=== PATIENT | female | born 1940 | race Caucasian/White ===

== ENCOUNTER 2019-12-30 08:42 | Outpatient (CLI) | payer MEDICARE, SELFPAY ==
[2019-12-30 08:55] LABS: Hematocrit 40.1 % (35.0-42.0); Hemoglobin 12.9 g/dL (11.7-13.8); Mean Corpuscular HGB Conc 32.2 g/dL (32.0-36.0); Mean Corpuscular Hemoglobin 28.7 pg (27.0-31.0); Mean Corpuscular Volume 89.1 fL (78.0-102.0); Mean Platelet Volume 9.6 fl (9.2-11.8); Platelet Count Result 207 K/mm3 (150-420); Red Cell Distribution Width 13.2 % (11.6-14.4)
[2019-12-30 09:36] LABS: Creatinine Urine 177.18 mg/dL (40-278)
[2019-12-30 09:37] LABS: MALB Creatinine Ratio 17.1 mg/g (0-30); Microalbumin Urine Random 30.4 mg/L
[2019-12-30 09:42] LABS: Hemoglobin A1C 6.6 % (<5.7)
[2019-12-30 09:49] LABS: Band Neutrophils Percent 1 % (0-6); Lymphocytes Absolute Manual 1.26 K/mm3 (1.1-4.5); Lymphocytes Percent Manual 14 % (18-44); Monocytes Absolute Manual 0.54 K/mm3 (0.1-0.90); Monocytes Percent Manual 6 % (3-9); Neutrophils Absolute Manual 6.66 K/mm3 (1.7-7.2); Neutrophils Percent Manual 73 % (46-73); Total Cells Counted 100
[2019-12-30 09:50] LABS: Basophils Percent Manual 0 % (0-1); Eosinophils Absolute Manual 0.54 K/mm3 (0.02-0.5); Eosinophils Percent Manual 6 % (1-6); Platelet Estimate Adequate (Adequate)
[2019-12-30 11:33] LABS: Alanine Aminotransferase 42 U/L (14-59); Albumin Level 3.7 g/dL (3.4-5.0); Alkaline Phosphatase 60 U/L (46-116); Anion Gap 15.3 mmol/L (7-16); Aspartate Amino Transferase 37 U/L (15-37); Bilirubin,Total 0.4 mg/dL (0.00-1.00); Blood Urea Nitrogen 16 mg/dL (7-18); Calcium 10.1 mg/dL (8.5-10.1); Carbon Dioxide 29 mmol/L (21-32); Chloride 105 mmol/L (98-108); Estimated Glomerular Filt Rate 49; Glucose 116 mg/dL (70-99); Osmolality Calculated 302 mOsm/kg (285-295); Potassium 4.3 mmol/L (3.5-5.1); Sodium 145 mmol/L (136-145)
== END 2019-12-30 08:43 | disposition home or self-care (01) ==
LOC: CHSLAB 08:44
PROVIDERS: PCP Family Medicine; Visit Provider Family Medicine
DX: I10 Essential (primary) hypertension (principal); E11.9 Type 2 diabetes mellitus without complications; Z00.00 Encounter for general adult medical examination without abnormal findings
CPT/HCPCS: 36415; 80053; 82043; 83036; 85025

== ENCOUNTER 2020-05-29 09:03 | Outpatient (CLI) | payer MEDICARE, SELFPAY ==
[2020-05-29 09:13] LABS: Eosinophils Absolute Auto 0.48 K/mm3 (0.02-0.50); Eosinophils Percent Auto 6.4 % (1.0-6.0); Hematocrit 41.5 % (35.0-42.0); Hemoglobin 13.4 g/dL (11.7-13.8); Immature Granulocyte Absolute 0.02 K/mm3 (0.00-0.00); Immature Granulocyte Percent A 0.3 % (0.0-0.0); Lymphocytes Absolute Auto 1.87 K/mm3 (1.10-4.50); Lymphocytes Percent Auto 25.1 % (18.0-42.0); Mean Corpuscular HGB Conc 32.3 g/dL (32.0-36.0); Mean Corpuscular Hemoglobin 29.1 pg (27.0-31.0); Mean Corpuscular Volume 90.2 fL (78.0-102.0); Mean Platelet Volume 9.7 fl (9.2-11.8); Monocytes Absolute Auto 0.61 K/mm3 (0.10-0.90); Monocytes Percent Auto 8.2 % (2.0-11.0); Neutrophils Absolute Auto 4.5 K/mm3 (1.7-7.2); Platelet Count Result 182 K/mm3 (150-420); Red Cell Distribution Width 12.5 % (11.6-14.4); White Blood Count 7.5 K/mm3 (4.8-10.8)
[2020-05-29 10:31] LABS: Alanine Aminotransferase 36 U/L (14-59); Albumin Level 3.6 g/dL (3.4-5.0); Alkaline Phosphatase 59 U/L (46-116); Aspartate Amino Transferase 32 U/L (15-37); Bilirubin,Total 0.5 mg/dL (0.00-1.00); Blood Urea Nitrogen 19 mg/dL (7-18); Calcium 9.9 mg/dL (8.5-10.1); Carbon Dioxide 32 mmol/L (21-32); Chloride 102 mmol/L (98-108); Estimated Glomerular Filt Rate 42; Glucose 160 mg/dL (70-99); Lactate Dehydrogenase 98 U/L (81-234); Osmolality Calculated 295 mOsm/kg (285-295); Sodium 140 mmol/L (136-145); Total Protein 7.9 g/dL (6.4-8.2)
== END 2020-05-29 09:04 | disposition home or self-care (01) ==
LOC: CHSLAB 09:05
PROVIDERS: PCP Family Medicine; Visit Provider Internal Medicine Hematology & Oncology
DX: C77.4 Secondary and unspecified malignant neoplasm of inguinal and lower limb lymph nodes (principal)
CPT/HCPCS: 36415; 80053; 83615; 85025

== ENCOUNTER 2020-11-02 09:56 | Outpatient (CLI) | payer MEDICARE, SELFPAY ==
[2020-11-02 10:09] LABS: Basophils Absolute Auto 0.03 K/mm3 (0.00-0.10); Basophils Percent Auto 0.3 % (0.0-1.0); Eosinophils Absolute Auto 0.23 K/mm3 (0.02-0.50); Eosinophils Percent Auto 2.6 % (1.0-6.0); Hematocrit 38.2 % (35.0-42.0); Hemoglobin 12.3 g/dL (11.7-13.8); Immature Granulocyte Absolute 0.08 K/mm3 (0.00-0.00); Immature Granulocyte Percent A 0.9 % (0.0-0.0); Mean Corpuscular HGB Conc 32.2 g/dL (32.0-36.0); Mean Corpuscular Hemoglobin 28.8 pg (27.0-31.0); Mean Corpuscular Volume 89.5 fL (78.0-102.0); Mean Platelet Volume 8.5 fl (9.2-11.8); Monocytes Percent Auto 5.7 % (2.0-11.0); Neutrophils Absolute Auto 6.5 K/mm3 (1.7-7.2); Neutrophils Percent Auto 74.5 % (50.0-70.0); Platelet Count Result 374 K/mm3 (150-420); Red Blood Count 4.27 M/mm3 (4.20-5.40); White Blood Count 8.8 K/mm3 (4.8-10.8)
[2020-11-02 15:53] LABS: Alanine Aminotransferase 39 U/L (14-59); Albumin Level 2.9 g/dL (3.4-5.0); Alkaline Phosphatase 55 U/L (46-116); Anion Gap 12 mmol/L (8-16); Aspartate Amino Transferase 33 U/L (15-37); Bilirubin,Total 0.5 mg/dL (0.00-1.00); Blood Urea Nitrogen 14 mg/dL (7-18); Calcium 9.4 mg/dL (8.5-10.1); Carbon Dioxide 27 mmol/L (21-32); Chloride 101 mmol/L (98-108); Estimated Glomerular Filt Rate 50; Glucose 179 mg/dL (70-99); Osmolality Calculated 294 mOsm/kg (285-295); Potassium 4.4 mmol/L (3.5-5.1); Sodium 140 mmol/L (136-145)
== END 2020-11-02 09:57 | disposition home or self-care (01) ==
LOC: CHSLAB 10:00
PROVIDERS: PCP Family Medicine; Visit Provider Internal Medicine Hematology & Oncology
DX: C77.4 Secondary and unspecified malignant neoplasm of inguinal and lower limb lymph nodes (principal)
CPT/HCPCS: 36415; 80053; 85025

== ENCOUNTER 2020-11-23 06:39 | Outpatient (CLI) | payer MEDICARE, SELFPAY ==
--- NOTE | ~2020-11-23 | CT_ITS ---
EXAMINATION: CT chest abdomen pelvis w con DATE: 11/23/2020 07:24 INDICATION: Malignant melanoma of right lower extremity TECHNIQUE: Computed tomography (CT) of the chest, abdomen, and pelvis was performed with 100 cc Omnip aque 350 intravenous contrast. Automated exposure control and iterative reconstruction technique were employed. Exam dose: 716.99 mGy-cm total exam DLP. COMPARISON: 12/15/2019 CT pulmonary scan 11/25/2019 CT abdomen pelvis FINDINGS: CHEST CT: Right Port-A-Cath catheter, catheter tip at upper right atrium. Up to approximately 9 x 12.5 mm right paratracheal lymph nodes. No hilar mass lesion or lymphadenopat hy. No thoracic aortic aneurysm or dissection. Normal heart size. No pericardial effusion. No pleural effusion. Moderately large hiatal hernia. ABDOMEN/PELVIS CT: Diffuse hepatic steatosis. No hepatic space-occupying mass lesion. The gallbladder is unremarkable. N o bile duct or pancreatic duct dilatation. No pancreatic calcification. Up to 1.4 x 1.8 cm hypoattenuating cystic-appearing lesion of the pancreatic neck; differential diagn osis includes pseudocyst, intraductal papillary mucinous neoplasm, mucinous cystic neoplasm, serous c ystadenoma or neuroendocrine tumor. No adrenal mass lesion is detected. Approximately 5.5 mm right renal cyst. No other renal space occupying mass lesion is evident. No urin michelle tract calculus or hydroureteronephrosis. The urinary bladder is unremarkable. Retroverted uterus. There is atherosclerotic calcification of the abdominal aorta at the origins of celiac and superior m esenteric and renal arteries. No abdominal aortic aneurysm. No intraperitoneal or retroperitoneal or pelvic mass lesion or adenopathy or ascites is detected. There are numerous diverticula of the sigmoid and descending colon, with minimal involvement of the t ransverse colon; no CT evidence of diverticulitis. Normal appendix. No bowel obstruction, bowel wall thickening, pneumatosis or intraperitoneal free air. Degenerative changes of the thoracic spine, including diffuse idiopathic skeletal hyperostosis, as we ll as multilevel degenerative disease of lumbar spine, particularly at L3-4, L4-5 and L5-S1. No suspicious osteolytic or osteoblastic lesions are noted. IMPRESSION: Right Port-A-Cath catheter tip in upper right atrium Moderately large hiatal hernia Diffuse hepatic steatosis Approximately 1.4 x 1.8 cm cystic lesion of the pancreatic neck; differential diagnosis given above Diverticulosis of the colon Reviewed, dictated and finalized at [facility]. Reviewed, dictated and finalized at location A. BUILDER IMPRESSION: Right Port-A-Cath catheter tip in upper right atrium Moderately large hiatal hernia Diffuse hepatic steatosis Approximately 1.4 x 1.8 cm cystic lesion of the pancreatic neck; differential d iagnosis given above Diverticulosis of the colon
== END 2020-11-23 06:40 | disposition home or self-care (01) ==
PROVIDERS: PCP Family Medicine; Visit Provider Nurse Practitioner Adult Health
DX: C43.71 Malignant melanoma of right lower limb, including hip (principal); K57.30 Diverticulosis of large intestine without perforation or abscess without bleeding; K76.0 Fatty (change of) liver, not elsewhere classified; K44.9 Diaphragmatic hernia without obstruction or gangrene
CPT/HCPCS: 71260; 74177; Q9967

== ENCOUNTER 2020-12-03 07:56 | Outpatient (CLI) | payer MEDICARE, SELFPAY ==
[2020-12-03 08:25] LABS: Basophils Absolute Auto 0.08 K/mm3 (0.00-0.10); Basophils Percent Auto 0.7 % (0.0-1.0); Eosinophils Absolute Auto 0.58 K/mm3 (0.02-0.50); Hemoglobin 12.7 g/dL (11.7-13.8); Immature Granulocyte Absolute 0.05 K/mm3 (0.00-0.00); Immature Granulocyte Percent A 0.4 % (0.0-0.0); Lymphocytes Absolute Auto 2.34 K/mm3 (1.10-4.50); Lymphocytes Percent Auto 20.2 % (18.0-42.0); Mean Corpuscular HGB Conc 31.8 g/dL (32.0-36.0); Mean Corpuscular Hemoglobin 28.6 pg (27.0-31.0); Mean Corpuscular Volume 90.1 fL (78.0-102.0); Mean Platelet Volume 10.1 fl (9.2-11.8); Monocytes Absolute Auto 0.83 K/mm3 (0.10-0.90); Monocytes Percent Auto 7.2 % (2.0-11.0); Neutrophils Absolute Auto 7.7 K/mm3 (1.7-7.2); Neutrophils Percent Auto 66.5 % (50.0-70.0); Platelet Count Result 244 K/mm3 (150-420); Red Blood Count 4.44 M/mm3 (4.20-5.40); Red Cell Distribution Width 13.4 % (11.6-14.4); White Blood Count 11.6 K/mm3 (4.8-10.8)
[2020-12-03 08:36] LABS: Creatinine Urine 133.07 mg/dL (40-278); MALB Creatinine Ratio 38.7 mg/g (0-30); Microalbumin Urine Random 51.6 mg/L
[2020-12-03 08:40] LABS: Hemoglobin A1C 6.3 % (<5.7)
[2020-12-03 09:21] LABS: Alanine Aminotransferase 31 U/L (14-59); Albumin Level 3.5 g/dL (3.4-5.0); Alkaline Phosphatase 51 U/L (46-116); Anion Gap 8 mmol/L (8-16); Aspartate Amino Transferase 24 U/L (15-37); Bilirubin,Total 0.5 mg/dL (0.00-1.00); Blood Urea Nitrogen 22 mg/dL (7-18); Calcium 9.8 mg/dL (8.5-10.1); Carbon Dioxide 27 mmol/L (21-32); Chloride 104 mmol/L (98-108); Cholesterol 162 mg/dL (0-200); Estimated Glomerular Filt Rate 48; Glucose 116 mg/dL (70-99); HDL Direct 33 mg/dL (40-60); LDL Cholesterol Calculated 88 mg/dL (<130); Osmolality Calculated 292 mOsm/kg (285-295); Potassium 4.4 mmol/L (3.5-5.1); Sodium 139 mmol/L (136-145); Thyroid Stimulating Hormone 6.18 uIU/mL (0.36-3.74); Triglycerides 206 mg/dL (0-150)
[2020-12-08 14:23] LABS: Vitamin D 25 Hydroxy 29 ng/mL (30-100)
== END 2020-12-03 07:57 | disposition home or self-care (01) ==
LOC: CHSLAB 08:00
PROVIDERS: PCP Family Medicine; Visit Provider Family Medicine
DX: E55.9 Vitamin D deficiency, unspecified (principal); I10 Essential (primary) hypertension; E11.9 Type 2 diabetes mellitus without complications; Z00.00 Encounter for general adult medical examination without abnormal findings; Z13.220 Encounter for screening for lipoid disorders
CPT/HCPCS: 36415; 80053; 80061; 82043; 82306; 83036; 84443; 85025

== ENCOUNTER 2021-03-28 08:29 | Outpatient (CLI) | payer MEDICARE, SELFPAY ==
--- NOTE | ~2021-03-28 | US_ITS ---
EXAMINATION: US soft tissue LE RT DATE: 03/28/2021 09:09 INDICATION: Hard fixed mass at the right thigh TECHNIQUE: Multiple grayscale and Doppler ultrasound images of the region of concern at the anterior right thigh were obtained. COMPARISON: None FINDINGS: There are a couple solid hypoechoic nodules with interval vascular flow on color Doppler located with in the subcutaneous fat at the region of concern. The larger with lobular margins measures 2.7 x 2.3 x 1.9 cm. The smaller nodule measures 1.3 x 0.9 x 0.9 cm and lies approximately 1 cm from the larger nodule. IMPRESSION: 1. Couple solid nodules at the region of concern at the anterior right thigh the largest measuring 2. 7 cm in diameter and which are concerning for malignancy. Recommend ultrasound-guided biopsy for defi nitive determination. Reviewed, dictated and finalized at location A. IMPRESSION: 1. Couple solid nodules at the region of concern at the anterior right thigh th e largest measuring 2.7 cm in diameter and which are concerning for malignancy. Recommend ultrasound-guided biopsy for definitive determination.
== END 2021-03-28 08:30 | disposition home or self-care (01) ==
PROVIDERS: PCP Family Medicine; Visit Provider Nurse Practitioner
DX: R22.41 Localized swelling, mass and lump, right lower limb (principal)
CPT/HCPCS: 76882

== ENCOUNTER 2021-04-06 10:56 | Outpatient (CLI) | payer MEDICARE, SELFPAY ==
--- NOTE | ~2021-04-06 | US_ITS ---
EXAMINATION: US biopsy st muscle DATE: 04/06/2021 11:48 INDICATION: Subcutaneous mass at the anterior right thigh TECHNIQUE: The procedure including the risks and benefits was discussed with the patient. Risks discu ssed included bleeding and infection. The patient understood the risks and agreed to proceed. The sk in overlying the anterior right thigh was prepped and draped in usual sterile fashion. Anesthetic wa s administered with 1% lidocaine subcutaneously. An 18 gauge core biopsy needle was advanced under c ontinuous ultrasound observation to the lesion of interest. 3 core biopsy specimens were obtained. T he needle was removed and the entry site was cleaned and dressed. Post procedure ultrasound demonst rated no hemorrhage. FINDINGS: Ultrasound images demonstrate a 2.5 x 2.5 x 2.2 cm solid very hypoechoic mass with lobular margins and internal lateral flow on color Doppler. Subsequent images demonstrate biopsy needle advan jessica into the mass. IMPRESSION: 1. Successful Ultrasound-guided biopsy of a 2.5 cm solid hypoechoic mass with lobular margins in the subcutaneous fat at the anterior right thigh which is concerning for recurrent melanoma. Reviewed, dictated and finalized at location A. IMPRESSION: 1. Successful Ultrasound-guided biopsy of a 2.5 cm solid hypoechoic mass with l obular margins in the subcutaneous fat at the anterior right thigh which is con cerning for recurrent melanoma.
== END 2021-04-06 10:57 | disposition home or self-care (01) ==
PROVIDERS: PCP Family Medicine; Visit Provider Nurse Practitioner
DX: C43.71 Malignant melanoma of right lower limb, including hip (principal)
CPT/HCPCS: 20206; 76942; 88305; 88342

== ENCOUNTER 2021-04-28 09:50 | Outpatient (CLI) | payer MEDICARE, SELFPAY ==
--- NOTE | ~2021-04-28 | CT_ITS ---
EXAMINATION: CT chest abdomen pelvis w con EXAM DATE: 04/28/2021 10:17 INDICATION: Malignant melanoma right lower extremity. Follow-up. TECHNIQUE: Spiral CT of the chest, abdomen and pelvis was performed following intravenous injection o f 100 mL Omnipaque 350. Axial, coronal and sagittal images chest, abdomen and pelvis were reviewed. Coronal maximum intensity pixel images of chest reviewed. The dose-length product (DLP) for this ex amination was 739.90 mGy-cm. The exposure was tailored according to patient size (auto mA exposure c ontrol), and iterative reconstruction (ASIR) was used as additional dose reduction technique. Compari son is made to prior examination from 11/23/2020. FINDINGS: CHEST: There is a right-sided portacatheter. Interval development of low density region at the tip of this catheter measuring about 8 x 12 x 18 mm, most likely thrombus at the catheter tip. This is not causing significant SVC luminal stenosis. No filling defects within the pulmonary arteries. The lungs are clear. There are no pleural or pericardial effusions. Tracheobronchial tree is patent. Lar gest thoracic lymph node is right lower paratracheal in location measuring 10 x 8 mm, either stable o r appear slightly decreased in size. This could be reactive. There is no pneumothorax. Heart jefferson l in size. There is mild coronary arterial calcification, arterial sclerosis. ABDOMEN PELVIS: Pancreatic head cystic mass measuring 1.8 x 1.4 cm unchanged. The differential diagno sis includes pseudocyst, intraductal papillary mucinous neoplasm (IPMN), mucinous cystic neoplasm (MC N), and the less common serous cystadenoma and neuroendocrine tumor. Correlate for history of pancrea titis. There is hepatic steatosis without suspicious focal lesion identified. Spleen, adrenal glands are unr emarkable. There is splenic hilar aneurysm measuring 1.2 cm, unchanged. Gallbladder is unremarkable. No biliary obstruction. Portal and splenic veins are patent. Kidneys enhance symmetrically. Ther e is no hydronephrosis. The uterus is retroverted and morphologically normal. The bladder is unre markable. There is no retroperitoneal, inguinal or pelvic lymphadenopathy. There is mild scattered arteriosclerotic disease. The appendix is normal. There is moderate-sized gastroesophageal hiatal hernia. Small duodenal diver ticulum. There is expected amount of colonic stool. There is moderate sigmoid predominant colonic div erticulosis. There is no adjacent inflammatory change to suggest diverticulitis. There are no osteob lastic or osteolytic lesions identified. IMPRESSION: 1. Interval development of low density region at portacatheter tip most likely thrombus. 2. 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 3. Stable pancreatic cystic mass. 4. Decrease in size of right lower paratracheal lymph node, probably reactive. 5. Moderate colonic diverticulosis. 6. Moderate hiatal hernia. 7. Hepatic steatosis. 8. No evidence metastatic disease. I discussed suspected catheter tip thrombus and otherwise stable exam with Gio Irving MD at 2020 15:31 CDT. Reviewed, dictated and finalized at location B. IMPRESSION: 1. Interval development of low density region at portacatheter tip most likely thrombus. 2. 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 3. Stable pancreatic cystic mass. 4. Decrease in size of right lower paratracheal lymph node, probably reactive. 5. Moderate colonic diverticulosis. 6. Moderate hiatal hernia. 7. Hepatic steatosis. 8. No evidence metastatic disease. I discussed suspected catheter tip thrombus and otherwise stable exam with Gio Irving MD at 04/28/2021 15:31 CDT.
[2021-04-28 10:14] LABS: Estimated Glomerular Filt Rate 43
== END 2021-04-28 09:51 | disposition home or self-care (01) ==
PROVIDERS: PCP Family Medicine; Visit Provider Internal Medicine Hematology & Oncology
DX: C43.71 Malignant melanoma of right lower limb, including hip (principal); K57.30 Diverticulosis of large intestine without perforation or abscess without bleeding; K44.9 Diaphragmatic hernia without obstruction or gangrene; K76.0 Fatty (change of) liver, not elsewhere classified
CPT/HCPCS: 71260; 74177; Q9967

== ENCOUNTER → 2021-05-18 01:33 | Outpatient (CLI) | payer MEDICARE, SELFPAY ==
[2021-05-19 16:18] LABS: SARS-CoV-2 RNA PCR Negative
== END ==
PROVIDERS: PCP Family Medicine; Visit Provider Surgery Plastic and Reconstructive Surgery
DX: Z01.812 Encounter for preprocedural laboratory examination (principal); Z20.822 Contact with and (suspected) exposure to COVID-19
CPT/HCPCS: C9803; U0003; U0005

== ENCOUNTER 2021-05-18 09:04 | Outpatient (CLI) | payer MEDICARE, SELFPAY ==
--- NOTE | 2021-05-18 09:30 | ECG_ITS ---
Measurements Intervals [place] Rate: 79 P: 19 UT: 136 QRS: -1 QRSD: 81 T: 31 QT: 385 QTc: 444 Interpretive Statements SINUS RHYTHM DELAYED PRECORDIAL R/S TRANSITION INFERIOR INFARCT, AGE INDETERMINATE ABNORMAL ECG Electronically Signed On 05-18-2021 10:00:32 CDT by Alexey Tariq D.O.
== END 2021-05-18 09:05 | disposition home or self-care (01) ==
LOC: ANHSURGERY 09:09
PROVIDERS: PCP Family Medicine; Visit Provider Surgery Plastic and Reconstructive Surgery
DX: I10 Essential (primary) hypertension (principal); Z01.818 Encounter for other preprocedural examination; R94.31 Abnormal electrocardiogram [ECG] [EKG]
CPT/HCPCS: 93005

== ENCOUNTER 2021-05-21 01:20 | Day surgery (SDC) | payer MEDICARE, SELFPAY ==
[2021-05-10 14:35] VITALS: BMI 31.6
--- NOTE | 2021-05-20 12:14 | WPDANESEPPF ---
Anes - Initial Pre Proc Eval Procedure: Operation Date: 05/21/21 12:00 Proposed Procedures p Excision Melanoma Right Thigh with [place] Lymph Node Biopsy, Possible Complex Closure - Kyle Garduno MD Date/Time: 05/20/21 12:14 Surgeon: Kyle Garduno MD Pre Op Diagnosis: melanoma right thigh Patient Data Age: 80 Gender: F Height: 1.55 m Weight: 76 kg Allergies Allergy/AdvReac Type Severity Reaction Status Date / Time No Known Allergies Allergy Verified 05/21/21 10:18 Home Medications Medication Instructions Recorded Confirmed Type calcium carbonate-vitamin D3 1 cap PO BID 09/16/19 05/10/21 History aspirin 325 mg PO DAILY 05/10/21 05/10/21 History cholecalciferol (vitamin D3) 50 mcg PO DAILY 05/10/21 05/10/21 History metoprolol succinate 100 mg PO QAM 05/10/21 05/10/21 History Patient hx anesthesia problems: none Family hx anesthesia problems: none PMFSH Past Medical History Medical History (Updated 05/20/21 @ 12:16 by Talat Abel MD) Anxiety Chronic gout CKD (chronic kidney disease) stage 3, GFR 30-59 ml/min 2016 CVA (cerebral vascular accident) Depression DVT (deep venous thrombosis) History of melanoma 0.5 mm September 2018 HTN (hypertension) Malignant melanoma of left lateral thigh Malignant melanoma of skin, unspecified Obesity Renal disease Stage 3 - 2010 Tinnitus Tremor of both hands Type 2 diabetes mellitus without complication, without long-term current use of insulin Venous thromboembolism Vitamin D deficiency Surgical History Surgical History History of melanoma excision right thigh 10/14 Family History Family History Sibling Family history of cardiovascular disease, Onset Age: 61 Social History Social History Smoking status: Never smoker Second hand tobacco smoke exposure: No Alcohol intake: former 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 Substance use: never Substance use type: does not use Living arrangements: with family Additional living arrangements comments: [facility]USB Spiritual care concerns: No Anes - Eval Final PreProcedure Day of Procedure 05/20/21 12:14 Patient weight: obese Heart: regular rate and rhythm Lungs: clear to auscultation and normal air movement Airway: Mallampati scale class II Neurological: alert and oriented Last oral intake: >/= 8 hours ASA classification: III Emergent: no Anesthetic plan: proceed Anesthesia type and monitoring: general LMA and ETT Informed Consent: The patient's anesthetic plan and its attendant risks and benefits were discussed with the patient/family/POA. Questions were solicited and answers provided to the satisfaction of the patient/family/POA.
[2021-05-21] VITALS (8 sets, daily range): BP systolic 140–169; BP diastolic 53–87; PULSE 79–96; RESP 12–18; TEMP 36.4–36.7; O2SAT 96–100
--- NOTE | ~2021-05-21 | NM_ITS ---
EXAMINATION: NM sentinel node w imaging DATE: 05/21/2021 11:27 INDICATION: Right thigh melanoma TECHNIQUE: 0.483 mCi Tc-99m lymphoseek was injected in two aliquots at the medial and lateral sides o f a mass at the anterolateral right thigh. Scintigraphic images of the pelvis and proximal thighs wer e obtained. IMPRESSION: Small amount of uptake is seen at a single sentinel right inguinal lymph node. Reviewed, dictated and finalized at location A.
--- NOTE | 2021-05-21 12:09 | WPDHPUPDATE1 ---
History and Physical Update Update Date/Time: 05/21/21 12:09 History and Physical has been reviewed, including an updated exam of the patient. There are NO changes in the patient's condition. Risks, benefits, and alternatives have been discussed and questions answered. Patient agrees to proceed with procedure.
[2021-05-21] MEDS: ceFAZolin 2 GM/D5W 50 ML 2 GM/50 ML BAG IVPB (12:12)
--- NOTE | 2021-05-21 12:22 | W.PM.PROC2 ---
Procedure Note - Detailed Date of Procedure 05/21/21 Pre-op Diagnosis melanoma right thigh Post-op Diagnosis same Procedure Performed 1. Wide excision of melanoma right thigh 15cm 2. Intermediate closure right thigh 15cm 3. Right inguinal sentinel lymph node biopsy Surgeon Kyle Garduno MD Anesthesia general Indications 10/23/2018 ? right thigh melanoma excised. 7mm depth. 11/27 positive lymph node. Following with us and medical oncology. Recently noted mass right thigh. Ultrasound / Biopsy completed. Pathology returned as malignant melanoma. After discussion with team would like to proceed with excision / SLN biopsy Description of Procedure Risks, benefits, alternatives were again discussed with her and her . I want them to be very realistic about the risks involved as well as expectations. They are well aware of the severity of her diagnosis which was discussed in detail. Patient was marked in the preoperative holding area with her and her 's verification. She was taken to the operating room placed supine on the operating room table. Anesthesia provided by anesthesiology and prepped and draped in a standard sterile fashion. Surgical time-out was taken. I 1st addressed the inguinal node. 1% lidocaine and 0.25% Marcaine with epinephrine was used anesthetize locally. I utilized a probe in order to identify the sentinel node. Fifteen blade used to make an incision I continued dissection until the node was identified. The background was less than 10% of the count. This was sent to pathology. Closed using 2-0 Vicryl followed by 3-0 Monocryl in a running subcuticular 4-0 Monocryl and tissue glue. A 15 blade used to excise an ellipse of skin in the neck took a generous margin around the mass of concern. At the deep border there was a close margine at the muscle fascia which was excised and sent to pathology as a second specimen. Copiously irrigated with saline solution and verified strict hemostasis. I closed in many layers to obliterate all space using a 2-0 Vicryl followed by 3-0 Monocryl and 3-0 Nylon vertical mattress. Awoken and taken to PACU without difficulty. All instrument sponge counts were correct at the end of the case. Estimated Blood Loss 20 Drains No Packing No Pathology none sent Complications No immediate complications Condition stable Disposition PACU
[2021-05-21] MEDS: LIDO 1%/EPINEPHRINE 1:100,000 20 ML VIAL INFILTRATE (12:46)
[2021-05-21] MEDS: LACTATED RINGERS 1,000 ML 30 ML IV CONT ×2 (13:54)
== END 2021-05-21 15:45 | disposition home or self-care (01) ==
PROVIDERS: PCP Family Medicine; Visit Provider Surgery Plastic and Reconstructive Surgery
PROC: (CPT 11606; principal; 2021-05-21 12:00)
DX: C43.71 Malignant melanoma of right lower limb, including hip (principal); I12.9 Hypertensive chronic kidney disease with stage 1 through stage 4 chronic kidney disease, or unspecified chronic kidney disease; N18.30 Chronic kidney disease, stage 3 unspecified; E11.22 Type 2 diabetes mellitus with diabetic chronic kidney disease; E55.9 Vitamin D deficiency, unspecified; F41.8 Other specified anxiety disorders; Z86.73 Personal history of transient ischemic attack (TIA), and cerebral infarction without residual deficits; E66.9 Obesity, unspecified; Z68.31 Body mass index [BMI] 31.0-31.9, adult; Z79.82 Long term (current) use of aspirin
CPT/HCPCS: 11606; 12035; 38531; 78195; 88305; 88307; 88342; 93005; A9270; A9520; C9803; J0690; J1100; J2405; J2704; J7120; U0003; U0005

== ENCOUNTER 2021-06-07 10:22 | Outpatient (CLI) | payer MEDICARE, SELFPAY ==
[2021-06-07 10:42] LABS: Hemoglobin A1C 6.8 % (<5.7)
[2021-06-07 11:09] LABS: Alanine Aminotransferase 48 U/L (14-59); Albumin Level 3.7 g/dL (3.4-5.0); Alkaline Phosphatase 63 U/L (46-116); Anion Gap 10 mmol/L (8-16); Aspartate Amino Transferase 30 U/L (15-37); Bilirubin,Total 0.5 mg/dL (0.00-1.00); Blood Urea Nitrogen 20 mg/dL (7-18); Calcium 10.3 mg/dL (8.5-10.1); Carbon Dioxide 29 mmol/L (21-32); Chloride 104 mmol/L (98-108); Estimated Glomerular Filt Rate 53; Glucose 133 mg/dL (70-99); Osmolality Calculated 300 mOsm/kg (285-295); Potassium 4.3 mmol/L (3.5-5.1); Sodium 143 mmol/L (136-145); Total Protein 7.6 g/dL (6.4-8.2)
[2021-06-07 11:42] LABS: Thyroid Stimulating Hormone Reflex 3.69 u/IU/mL (0.36-3.74)
== END 2021-06-07 10:23 | disposition home or self-care (01) ==
LOC: CHSLAB 10:24
PROVIDERS: PCP Family Medicine; Visit Provider Family Medicine
DX: E11.9 Type 2 diabetes mellitus without complications (principal); I10 Essential (primary) hypertension; R79.89 Other specified abnormal findings of blood chemistry
CPT/HCPCS: 36415; 80053; 83036; 84443

== ENCOUNTER 2021-08-23 07:01 | Outpatient (CLI) | payer MEDICARE, SELFPAY ==
--- NOTE | ~2021-08-23 | XR_ITS ---
EXAMINATION: XR fl port a cath w contrast DATE: 08/23/2021 08:26 INDICATION: Right internal jugular central venous port catheter malfunction TECHNIQUE: 300 fluoroscopic images of the chest were obtained during injection of a total of 10 mL Om nipaque-240 intravenous contrast. The amount of fluoroscopy time used during this procedure was 0.2 m inutes. Total DAP was 0.77 mGycm^2 COMPARISON: None. FINDINGS: Right internal jugular central venous port catheter with distal tip at the midsuperior vena cava. The re is impedance to the free flow contrast at the tip of the catheter with cephalad directed central o f contrast which appears to delineate a subtle sheath of the soft tissues surrounding the distal cath eter. IMPRESSION: 1. Likely fibrin sheath surrounding the distal aspect of the right internal jugular central venous po rt catheter which impedes the free flow of contrast at the tip. Reviewed, dictated and finalized at location A. IMPRESSION: 1. Likely fibrin sheath surrounding the distal aspect of the right internal jug ular central venous port catheter which impedes the free flow of contrast at th e tip.
== END 2021-08-23 07:02 | disposition home or self-care (01) ==
PROVIDERS: PCP Family Medicine; Visit Provider Internal Medicine Hematology & Oncology
DX: T82.598A Other mechanical complication of other cardiac and vascular devices and implants, initial encounter (principal)
CPT/HCPCS: 36598

== ENCOUNTER → 2021-09-02 10:18 | Outpatient (REF) | payer MEDICARE, SELFPAY | LOC: ANHLAB 10:18 | PROVIDERS: PCP Family Medicine; Visit Provider Nurse Practitioner | DX: C44.311 Basal cell carcinoma of skin of nose (principal) | CPT/HCPCS: 88305 ==

== ENCOUNTER → 2021-10-13 15:43 | Outpatient (REF) | payer MEDICARE, SELFPAY | LOC: ANHLAB 15:43 | PROVIDERS: PCP Family Medicine; Visit Provider Surgery Plastic and Reconstructive Surgery | DX: C43.71 Malignant melanoma of right lower limb, including hip (principal) | CPT/HCPCS: 88304; 88307 ==

== ENCOUNTER 2021-11-01 07:41 | Outpatient (CLI) | payer MEDICARE, SELFPAY ==
--- NOTE | ~2021-11-01 | CT_ITS ---
EXAMINATION: CT abdomen pelvis w con INDICATION: Malignant melanoma of the right lower extremity TECHNIQUE: Computed tomographic images of the abdomen and pelvis were obtained after the administrati on of 100 cc of Omnipaque 350 intravenous contrast. The dose-length product (DLP) was 718.44 mGy-cm. Automated exposure control and iterative reconstruction technique were employed. COMPARISON: 04/28/2021 FINDINGS: There is a small sliding hiatal hernia. There is a new 8 mm nodule in the right lower lobe. The heart size is normal. There is eccentric thickening of a left axillary lymph node measuring up t o 8 mm in maximal thickness. There is a new ill-defined 8.5 x 5.7 cm mass involving liver segments IV a and VIII. There is a 14 mm subcapsular mass of the right hepatic lobe. There is an 8 mm mass in aris er segment III. Punctate calcifications in an otherwise normal spleen likely represent healed granulo matous disease. There is a 1.3 cm cystic lesion in the head of the pancreas, stable to slightly decre ased in size. The gallbladder and adrenal glands are normal. No pathologically enlarged abdominal or pelvic lymph nodes are identified. There is no free intraperitoneal gas or evidence of bowel obstruct ion. There is a new 2.1 cm fluid collection in the right groin which could be postoperative in nature . There are two enhancing soft tissue masses of the anterior right thigh measuring 1.3 cm on image 18 6. A partially imaged 2.9 x 1.7 cm soft tissue mass is seen anteriorly in the right thigh on image 19 2. There is moderate lumbar spondylosis. IMPRESSION: 1. Soft tissue masses of the right leg consistent with residual versus recurrent disease. 2. Liver masses, right lower lobe nodule, and eccentric thickening of a left axillary lymph node, con sistent with metastatic disease. 3. Cystic lesion in the head of the pancreas, stable to slightly decreased in size. Could consider MR I follow-up in two years. Reviewed, dictated and finalized at location A. SSING MACHINE OPERATOR IMPRESSION: 1. Soft tissue masses of the right leg consistent with residual versus recurren t disease. 2. Liver masses, right lower lobe nodule, and eccentric thickening of a left ax illary lymph node, consistent with metastatic disease. 3. Cystic lesion in the head of the pancreas, stable to slightly decreased in s ize. Could consider MRI follow-up in two years.
== END 2021-11-01 07:42 | disposition home or self-care (01) ==
LOC: ANHIMG 07:44
PROVIDERS: PCP Family Medicine; Visit Provider Internal Medicine Hematology & Oncology
DX: C43.71 Malignant melanoma of right lower limb, including hip (principal); K76.89 Other specified diseases of liver
CPT/HCPCS: 74177; 88305; 88331; Q9967

== ENCOUNTER → 2021-11-01 08:19 | Outpatient (REF) | payer MEDICARE, SELFPAY | LOC: ANHLAB 08:19 | PROVIDERS: PCP Family Medicine; Visit Provider Nurse Practitioner | DX: C44.311 Basal cell carcinoma of skin of nose (principal) | CPT/HCPCS: 88305; 88331 ==

== ENCOUNTER 2021-11-29 10:23 | Outpatient (CLI) | payer MEDICARE, SELFPAY ==
[2021-11-29 10:46] LABS: Basophils Absolute Auto 0.03 K/mm3 (0.00-0.10); Basophils Percent Auto 0.4 % (0.0-1.0); Eosinophils Absolute Auto 0.56 K/mm3 (0.02-0.50); Eosinophils Percent Auto 6.6 % (1.0-6.0); Hematocrit 37.1 % (35.0-42.0); Hemoglobin 11.1 g/dL (11.7-13.8); Immature Granulocyte Absolute 0.07 K/mm3 (0.00-0.00); Immature Granulocyte Percent A 0.8 % (0.0-0.0); Lymphocytes Absolute Auto 1.87 K/mm3 (1.10-4.50); Lymphocytes Percent Auto 22.2 % (18.0-42.0); Mean Corpuscular HGB Conc 29.9 g/dL (32.0-36.0); Mean Corpuscular Hemoglobin 26.2 pg (27.0-31.0); Mean Corpuscular Volume 87.7 fL (78.0-102.0); Mean Platelet Volume 9.2 fl (9.2-11.8); Monocytes Percent Auto 7.1 % (2.0-11.0); Neutrophils Absolute Auto 5.3 K/mm3 (1.7-7.2); Neutrophils Percent Auto 62.9 % (50.0-70.0); Platelet Count Result 254 K/mm3 (150-420); Red Blood Count 4.23 M/mm3 (4.20-5.40); Red Cell Distribution Width 13.6 % (11.6-14.4); White Blood Count 8.4 K/mm3 (4.8-10.8)
[2021-11-29 12:23] LABS: Alanine Aminotransferase 33 U/L (14-59); Albumin Level 3.2 g/dL (3.4-5.0); Alkaline Phosphatase 72 U/L (46-116); Anion Gap 11 mmol/L (8-16); Aspartate Amino Transferase 41 U/L (15-37); Bilirubin,Total 0.3 mg/dL (0.00-1.00); Blood Urea Nitrogen 18 mg/dL (7-18); Calcium 9.9 mg/dL (8.5-10.1); Carbon Dioxide 28 mmol/L (21-32); Chloride 101 mmol/L (98-108); Estimated Glomerular Filt Rate 49; Glucose 199 mg/dL (70-99); Osmolality Calculated 297 mOsm/kg (285-295); Sodium 140 mmol/L (136-145); Total Protein 7.8 g/dL (6.4-8.2)
== END 2021-11-29 10:24 | disposition home or self-care (01) ==
LOC: CHSLAB 10:28
PROVIDERS: PCP Family Medicine; Visit Provider Internal Medicine Hematology & Oncology
DX: C43.71 Malignant melanoma of right lower limb, including hip (principal)
CPT/HCPCS: 36415; 80053; 85025

== ENCOUNTER 2021-12-10 08:24 | Outpatient (CLI) | payer MEDICARE, SELFPAY ==
[2021-12-10 09:36] LABS: Hemoglobin A1C 6.5 % (<5.7)
[2021-12-10 10:14] LABS: Cholesterol 147 mg/dL (0-200); HDL Direct 34 mg/dL (40-60); LDL Cholesterol Calculated 82 mg/dL (<130); Triglycerides 155 mg/dL (0-150); Uric Acid 9.1 mg/dL (2.6-6.0); Vitamin B12 743 pg/mL (193-986)
[2021-12-10 10:16] LABS: Free T4 Free Thyroxine Reflex 1.01 ng/dL (0.76-1.46); Thyroid Stimulating Hormone Reflex 3.81 u/IU/mL (0.36-3.74)
[2021-12-14 14:35] LABS: Vitamin D 25 Hydroxy 50 ng/mL (30-100)
== END 2021-12-10 08:25 | disposition home or self-care (01) ==
LOC: CHSLAB 08:27
PROVIDERS: PCP Family Medicine; Visit Provider Family Medicine
DX: E78.5 Hyperlipidemia, unspecified (principal); Z68.31 Body mass index [BMI] 31.0-31.9, adult; Z13.220 Encounter for screening for lipoid disorders; E11.9 Type 2 diabetes mellitus without complications; E53.8 Deficiency of other specified B group vitamins; I10 Essential (primary) hypertension; M10.00 Idiopathic gout, unspecified site
CPT/HCPCS: 36415; 80061; 82306; 82607; 83036; 84439; 84443; 84550

== ENCOUNTER 2022-01-21 15:18 | Outpatient (CLI) | payer MEDICARE, SELFPAY ==
[2022-01-21 15:35] LABS: Basophils Absolute Auto 0.09 K/mm3 (0.00-0.10); Basophils Percent Auto 0.7 % (0.0-1.0); Eosinophils Absolute Auto 1.25 K/mm3 (0.02-0.50); Eosinophils Percent Auto 9.7 % (1.0-6.0); Hematocrit 41.3 % (35.0-42.0); Hemoglobin 12.8 g/dL (11.7-13.8); Immature Granulocyte Absolute 0.05 K/mm3 (0.00-0.00); Immature Granulocyte Percent A 0.4 % (0.0-0.0); Lymphocytes Absolute Auto 3.43 K/mm3 (1.10-4.50); Lymphocytes Percent Auto 26.6 % (18.0-42.0); Mean Corpuscular Hemoglobin 26.6 pg (27.0-31.0); Mean Corpuscular Volume 85.9 fL (78.0-102.0); Mean Platelet Volume 9.7 fl (9.2-11.8); Neutrophils Absolute Auto 7.2 K/mm3 (1.7-7.2); Neutrophils Percent Auto 55.6 % (50.0-70.0); Platelet Count Result 245 K/mm3 (150-420); Red Blood Count 4.81 M/mm3 (4.20-5.40); Red Cell Distribution Width 15.4 % (11.6-14.4); White Blood Count 12.9 K/mm3 (4.8-10.8)
[2022-01-21 16:39] LABS: Alanine Aminotransferase 40 U/L (14-59); Albumin Level 3.5 g/dL (3.4-5.0); Alkaline Phosphatase 65 U/L (46-116); Bilirubin,Total 0.3 mg/dL (0.00-1.00); Calcium 9.5 mg/dL (8.5-10.1); Carbon Dioxide 29 mmol/L (21-32); Estimated Glomerular Filt Rate 45; Glucose 130 mg/dL (70-99); Thyroid Stimulating Hormone 4.84 uIU/mL (0.36-3.74)
[2022-01-21 16:49] LABS: Blood Urea Nitrogen 20 mg/dL (7-18); Potassium 4.4 mmol/L (3.5-5.1)
[2022-01-21 16:52] LABS: Aspartate Amino Transferase 50 U/L (15-37)
[2022-01-21 16:54] LABS: Anion Gap 10 mmol/L (8-16); Chloride 102 mmol/L (98-108); Osmolality Calculated 296 mOsm/kg (285-295); Sodium 141 mmol/L (136-145)
== END 2022-01-21 15:19 | disposition home or self-care (01) ==
LOC: CHSLAB 15:21
PROVIDERS: PCP Family Medicine; Visit Provider Internal Medicine Hematology & Oncology
DX: C43.71 Malignant melanoma of right lower limb, including hip (principal); R53.83 Other fatigue
CPT/HCPCS: 36415; 80053; 84443; 85025

== ENCOUNTER 2022-02-28 09:44 | Outpatient (CLI) | payer MEDICARE, SELFPAY ==
--- NOTE | ~2022-02-28 | CT_ITS ---
EXAMINATION: CT abdomen pelvis w con DATE: 02/28/2022 10:10 INDICATION: Malignant melanoma of right lower extremity. TECHNIQUE: Computed tomography (CT) of the abdomen and pelvis was performed with 100 mL Omnipaque 350 intravenous contrast. Automated exposure control and iterative reconstruction technique were employe d. The dose-length product was 565.78 mGy-cm. COMPARISON: CT abdomen and pelvis 11/01/2021 FINDINGS: The visualized portions of the lung bases demonstrate mild atelectasis. There is a 4 mm nod ule in right lung lower lobe, decreased from 9 mm. No pleural effusion. The heart size is normal. The re are coronary artery calcifications. No pericardial effusion. There is a large sliding hiatal herni a. A calcification in the liver is consistent with old granulomas disc disease. There are a few ill-d efined masses in the liver with interval improvement. The largest mass or conglomeration of masses me asures 5.1 x 2.2 cm in right hepatic lobe, decreased from 8.8 x 5.9 cm. The gallbladder and spleen ar e normal. There is an 11 mm rim calcified saccular aneurysm of splenic artery. There is an 18 mm cyst ic lesion in the head of the pancreas that previously measured 13 mm. The adrenal glands are normal. There is cortical thinning of the kidneys. There are cysts in right kidney measuring up to 9 mm. Ther e are no dilated loops of bowel. There is diverticulosis of the colon without evidence of diverticuli tis. The appendix is normal. There are no pathologically enlarged lymph nodes. There is no free intra peritoneal fluid. There is severe lumbar spondylosis. IMPRESSION: 1. Improved lung nodule and improved liver masses, consistent with metastatic disease. 2. Worsened 18 mm cystic lesion of the pancreas. The differential diagnosis includes pseudocyst, intr aductal papillary mucinous neoplasm (IPMN), mucinous cystic neoplasm (MCN), serous cystadenoma, and n euroendocrine tumor. Consider abdomen MRI without and with contrast in one year. Reviewed, dictated and finalized at location A. IMPRESSION: 1. Improved lung nodule and improved liver masses, consistent with metastatic d isease. 2. Worsened 18 mm cystic lesion of the pancreas. The differential diagnosis inc ludes pseudocyst, intraductal papillary mucinous neoplasm (IPMN), mucinous cyst ic neoplasm (MCN), serous cystadenoma, and neuroendocrine tumor. Consider abdom en MRI without and with contrast in one year.
== END 2022-02-28 09:45 | disposition home or self-care (01) ==
PROVIDERS: PCP Family Medicine; Visit Provider Internal Medicine Hematology & Oncology
DX: C43.71 Malignant melanoma of right lower limb, including hip (principal)
CPT/HCPCS: 74177; Q9967

== ENCOUNTER 2022-03-05 08:43 | Outpatient (CLI) | payer MEDICARE, SELFPAY ==
[2022-03-05 09:02] LABS: Basophils Absolute Auto 0.06 K/mm3 (0.00-0.10); Basophils Percent Auto 0.5 % (0.0-1.0); Eosinophils Absolute Auto 0.31 K/mm3 (0.02-0.50); Eosinophils Percent Auto 2.4 % (1.0-6.0); Hematocrit 45.6 % (35.0-42.0); Hemoglobin 13.8 g/dL (11.7-13.8); Immature Granulocyte Absolute 0.07 K/mm3 (0.00-0.00); Immature Granulocyte Percent A 0.5 % (0.0-0.0); Lymphocytes Absolute Auto 2.77 K/mm3 (1.10-4.50); Lymphocytes Percent Auto 21.4 % (18.0-42.0); Mean Corpuscular HGB Conc 30.3 g/dL (32.0-36.0); Mean Corpuscular Hemoglobin 27.1 pg (27.0-31.0); Mean Corpuscular Volume 89.6 fL (78.0-102.0); Mean Platelet Volume 10.2 fl (9.2-11.8); Monocytes Absolute Auto 0.69 K/mm3 (0.10-0.90); Monocytes Percent Auto 5.3 % (2.0-11.0); Neutrophils Absolute Auto 9.1 K/mm3 (1.7-7.2); Neutrophils Percent Auto 69.9 % (50.0-70.0); Platelet Count Result 199 K/mm3 (150-420); Red Blood Count 5.09 M/mm3 (4.20-5.40); Red Cell Distribution Width 16.6 % (11.6-14.4)
[2022-03-05 09:27] LABS: Alanine Aminotransferase 48 U/L (14-59); Albumin Level 3.3 g/dL (3.4-5.0); Alkaline Phosphatase 67 U/L (46-116); Anion Gap 8 mmol/L (8-16); Aspartate Amino Transferase 25 U/L (15-37); Bilirubin,Total 0.4 mg/dL (0.00-1.00); Blood Urea Nitrogen 22 mg/dL (7-18); Calcium 9.3 mg/dL (8.5-10.1); Carbon Dioxide 34 mmol/L (21-32); Chloride 100 mmol/L (98-108); Estimated Glomerular Filt Rate 43; Glucose 277 mg/dL (70-99); Osmolality Calculated 307 mOsm/kg (285-295); Potassium 3.5 mmol/L (3.5-5.1); Sodium 142 mmol/L (136-145); Thyroid Stimulating Hormone 3.21 uIU/mL (0.36-3.74); Total Protein 7.5 g/dL (6.4-8.2)
== END 2022-03-05 08:44 | disposition home or self-care (01) ==
LOC: CHSLAB 08:45
PROVIDERS: PCP Family Medicine; Visit Provider Internal Medicine Hematology & Oncology
DX: C43.71 Malignant melanoma of right lower limb, including hip (principal); R53.83 Other fatigue
CPT/HCPCS: 36415; 80053; 84443; 85025

== ENCOUNTER 2022-03-16 08:34 | Outpatient (CLI) | payer MEDICARE, SELFPAY ==
[2022-03-16 08:55] LABS: Basophils Absolute Auto 0.06 K/mm3 (0.00-0.10); Basophils Percent Auto 0.6 % (0.0-1.0); Eosinophils Absolute Auto 0.42 K/mm3 (0.02-0.50); Eosinophils Percent Auto 4.4 % (1.0-6.0); Hemoglobin 13.1 g/dL (11.7-13.8); Immature Granulocyte Absolute 0.11 K/mm3 (0.00-0.00); Immature Granulocyte Percent A 1.2 % (0.0-0.0); Lymphocytes Absolute Auto 2.83 K/mm3 (1.10-4.50); Lymphocytes Percent Auto 29.9 % (18.0-42.0); Mean Corpuscular HGB Conc 31.2 g/dL (32.0-36.0); Mean Corpuscular Hemoglobin 27.2 pg (27.0-31.0); Mean Corpuscular Volume 87.1 fL (78.0-102.0); Mean Platelet Volume 9.1 fl (9.2-11.8); Monocytes Absolute Auto 0.74 K/mm3 (0.10-0.90); Monocytes Percent Auto 7.8 % (2.0-11.0); Neutrophils Absolute Auto 5.3 K/mm3 (1.7-7.2); Neutrophils Percent Auto 56.1 % (50.0-70.0); Platelet Count Result 233 K/mm3 (150-420); Red Blood Count 4.82 M/mm3 (4.20-5.40); Red Cell Distribution Width 15.8 % (11.6-14.4); White Blood Count 9.5 K/mm3 (4.8-10.8)
[2022-03-16 08:56] LABS: Add Urine Microscopic? YES; Appearance Urine Slightly Cloudy (Clear); Bilirubin Urine Negative (Negative); Blood Urine 1+ (Negative); Color Urine Yellow (Yellow); Glucose Urine UA Negative (Negative); Ketones Urine Negative (Negative); Leukocyte Esterase Ur 1+ LEU/UL (Negative); Nitrate Urine Positive (Negative); Protein Urine Negative (Negative); Urobilinogen Urine 0.2 mg/dL (0.2-1.0); pH Urine 5.5 (5.0-8.0)
[2022-03-16 09:22] LABS: Bacteria Urine 4+ /hpf; Squamous Epithelial Cell Urine Few /hpf (Few); WBC Urine 31-50 /hpf (0-3)
[2022-03-16 10:25] LABS: Alanine Aminotransferase 141 U/L (14-59); Albumin Level 2.9 g/dL (3.4-5.0); Alkaline Phosphatase 62 U/L (46-116); Anion Gap 13 mmol/L (8-16); Aspartate Amino Transferase 107 U/L (15-37); Bilirubin,Total 0.8 mg/dL (0.00-1.00); Blood Urea Nitrogen 10 mg/dL (7-18); Calcium 9.4 mg/dL (8.5-10.1); Carbon Dioxide 27 mmol/L (21-32); Chloride 118 mmol/L (98-108); Estimated Glomerular Filt Rate 47; Glucose 105 mg/dL (70-99); Osmolality Calculated 325 mOsm/kg (285-295); Potassium 4.6 mmol/L (3.5-5.1); Sodium 158 mmol/L (136-145); Total Protein 6.8 g/dL (6.4-8.2)
== END 2022-03-16 08:35 | disposition home or self-care (01) ==
PROVIDERS: PCP Family Medicine; Visit Provider Family Medicine
DX: R53.83 Other fatigue (principal); I10 Essential (primary) hypertension; R41.82 Altered mental status, unspecified; R82.90 Unspecified abnormal findings in urine
CPT/HCPCS: 36415; 80053; 81001; 85025; 87077; 87086; 87088; 87186

== ENCOUNTER 2022-03-16 12:15 | Inpatient (IN) | payer MEDICARE, SELFPAY ==
[2022-03-16] VITALS (14 sets, daily range): BP systolic 128–142; BP diastolic 63–84; PULSE 84–103; RESP 14–27; TEMP 36.2–37.3; O2SAT 92–98; BMI 31.3
--- NOTE | ~2022-03-16 | XR_ITS ---
EXAMINATION: XR chest 1V portable DATE: 03/16/2022 12:35 INDICATION: Weakness. Hypernatremia. TECHNIQUE: A single frontal view of the chest was obtained. COMPARISON: Chest 2 views 08/20/2019, CT abdomen and pelvis 02/28/2022 FINDINGS: There is a diffuse interstitial pattern, consistent with mild pulmonary edema. No pleural e ffusion or pneumothorax. The heart size is normal. There is a moderate-sized hiatal hernia. There is a right internal jugular port with tip in superior vena cava. IMPRESSION: 1. Mild pulmonary edema. 2. Moderate-sized hiatal hernia. Reviewed, dictated and finalized at location B.
--- NOTE | ~2022-03-16 | XR_ITS ---
EXAMINATION: XR chest 1V portable DATE: 03/21/2022 13:33 INDICATION: Hypoxia TECHNIQUE: frontal view of the chest was obtained. COMPARISON: Chest radiograph dated 03/16/[address] dated 03/17/2022 FINDINGS: Right internal jugular central venous port catheter with distal tip at the caudal superior vena cava. Increased interstitial pattern in the bilateral lower lung zones with bronchial wall thickening vers us peribronchial cuffing. Small bilateral pleural effusions. No pneumothorax. Heart size is normal. M oderate sized hiatal hernia. IMPRESSION: 1. Mild increased interstitial pattern with bronchial wall thickening/peribronchial cuffing in the bi lateral lower lung zones which could represent either mild pulmonary edema or bronchitis/pneumonia. 2. Small bilateral pleural effusions. 3. Moderate-sized hiatal hernia. Reviewed, dictated and finalized at location B. IMPRESSION: 1. Mild increased interstitial pattern with bronchial wall thickening/peribronc hial cuffing in the bilateral lower lung zones which could represent either mil d pulmonary edema or bronchitis/pneumonia. 2. Small bilateral pleural effusions. 3. Moderate-sized hiatal hernia.
--- NOTE | ~2022-03-16 | CT_ITS ---
EXAMINATION: CTA chest PE protocol DATE: 03/17/2022 11:42 INDICATION: Hypoxia. Tachycardia. TECHNIQUE: Computed tomography angiography (CTA) of the chest was performed with 100 mL Omnipaque-350 intravenous contrast timed to evaluate the pulmonary arteries. Coronal maximum intensity projection 3D-reconstructions were created by the technologist. Automated exposure control and iterative reconst ruction technique were employed. The dose-length product was 354.59 mGy-cm. COMPARISON: Chest CT 04/28/2021 FINDINGS: There is chronic peripheral septal thickening in the lungs associated with groundglass opac ities. There are small pleural effusions. There is mild dependent atelectasis bilaterally. There are airspace and groundglass opacities in lingula and groundglass opacities in right lower lobe, consiste nt with infarct. The heart size is normal. There are coronary artery calcifications. No pericardial e ffusion. There is a right internal jugular port with tip in right ischium. There are acute pulmonary emboli involving left lower lobe and lingula and right middle and lower lobes. There is a moderate-si zed sliding hiatal hernia. 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 A calcification in the liver is consistent with old granulomatous disease. There is mild thoracic spondylosis. IMPRESSION: 1. Bilateral acute pulmonary emboli. I called this result to Rosanna Rodrigez. 2. Mild infarcts involving right lower lobe and lingula. 3. Small pleural effusions. 4. Chronic interstitial lung disease. Reviewed, dictated and finalized at location B.
--- NOTE | ~2022-03-16 | MR_ITS ---
EXAMINATION: MR brain/brain stem wo con DATE: 03/21/2022 11:51 INDICATION: Altered mental status. TECHNIQUE: Magnetic resonance imaging (MRI) of the brain and brainstem was performed without intraven ous contrast. COMPARISON: Brain MRI 06/07/2019, head CT 03/17/2022 FINDINGS: There are scattered areas of nonspecific increased T2-weighted signal intensity in the cere bral white matter, deep resendiz nuclei, and rubin. There is no intracranial hemorrhage, acute infarction, or abnormal intracranial mass lesion. There is an old infarct involving the left basal ganglia and i nternal capsule. The ventricles are normal in size. The orbits are normal. There is mild mucosal thi ckening in the ethmoid sinuses. There is a right mastoid effusion. IMPRESSION: 1. Old infarct involving the left basal ganglia and internal capsule. 2. Stable moderate nonspecific cerebral white matter disease and disease of the rubin and deep resendiz nu clei, which likely represents chronic small vessel ischemic disease. Reviewed, dictated and finalized at location A. IMPRESSION: 1. Old infarct involving the left basal ganglia and internal capsule. 2. Stable moderate nonspecific cerebral white matter disease and disease of the urbin and deep resendiz nuclei, which likely represents chronic small vessel ischem ic disease.
--- NOTE | ~2022-03-16 | US_ITS ---
EXAMINATION: US abdomen limited DATE: 03/18/2022 09:47 INDICATION: Abnormal liver function tests. TECHNIQUE: Multiple grayscale and Doppler ultrasound images of the abdomen were obtained. COMPARISON: Chest CT 03/17/2022 FINDINGS: There is a 1.2 cm hypoechoic mass in the head of the pancreas. There is diffuse hepatic nichole atosis with focal sparing at the hilum. The gallbladder is distended. No gallstones or gallbladder wa ll thickening. The common duct is normal and measures 4 mm. IMPRESSION: 1. Diffuse hepatic steatosis. Note that the metastatic disease seen by CT on 02/28/2022 is not visible on these images. 2. Gallbladder distention, which may be secondary to fasting. Reviewed, dictated and finalized at location B.
--- NOTE | ~2022-03-16 | CT_ITS ---
EXAMINATION: CT brain wo con DATE: 03/16/2022 15:30 INDICATION: Lower extremity weakness. TECHNIQUE: Computed tomography (CT) of the head was performed without intravenous contrast. The mA wa s adjusted according to patient size. Iterative reconstruction technique was employed. The dose-lengt h product was 605.33 mGy-cm. COMPARISON: Head CT 05/20/2019 FINDINGS: There are scattered areas of low attenuation in the cerebral white matter and the deep resendiz nuclei. There is an old lacunar infarct in the left basal ganglia. There is no intracranial hemorrha ge, acute infarction, or abnormal intracranial mass lesion. The ventricles are normal in size. The or bits are normal. There is mild mucosal thickening in the ethmoid sinuses. There is a small right mast oid effusion. IMPRESSION: 1. Old lacunar infarct in left basal ganglia. 2. Worsened extensive nonspecific cerebral white matter disease and disease of the deep resendiz nuclei, which likely represents chronic small vessel ischemic disease. Reviewed, dictated and finalized at location B. IMPRESSION: 1. Old lacunar infarct in left basal ganglia. 2. Worsened extensive nonspecific cerebral white matter disease and disease of the deep resendiz nuclei, which likely represents chronic small vessel ischemic dis ease.
--- NOTE | ~2022-03-16 | CT_ITS ---
EXAMINATION: CT brain wo con EXAM DATE: 03/17/2022 23:17 INDICATION: Mental status change. TECHNIQUE: Spiral CT of the head was performed without contrast. Axial, coronal and sagittal images were reviewed. The dose-length product (DLP) for this examination was 605.33 mGy-cm. The exposure w as tailored according to patient size, and iterative reconstruction (ASIR) was used as additional dos e reduction technique. Comparison is made to prior examination from 03/26/2022. FINDINGS: There is no acute intraparenchymal hemorrhage. No evidence of intraparenchymal brain mass lesion. No evidence of acute infarction. Please note that initial head CT has limited sensitivity f or small or acute infarctions. Chronic left basal ganglia lacunar infarction. There is moderate per iventricular and subcortical hypodensity, nonspecific but probably related to small vessel ischemic d isease. There is moderate prominence of the sulci and ventricles related to cerebral atrophy. The re is intracranial carotid arteriosclerosis. There are no extra-axial collections. There is no mass effect or midline shift. Significant interval decrease in caliber of the dilated superior orbital v eins. Soft tissue is unremarkable. The visualized sinuses and mastoid air cells are well aerated. IMPRESSION: 1. No acute intracranial findings. 2. Chronic age related findings. 3. Old left basal ganglia lacunar infarction. Reviewed, dictated and finalized at location A.
--- NOTE | 2022-03-16 13:11 | ECG_ITS ---
Measurements Intervals [place] Rate: 99 P: 56 MN: 162 QRS: -10 QRSD: 82 T: 47 QT: 336 QTc: 432 Interpretive Statements SINUS RHYTHM CANNOT RULE OUT INFERIOR INFARCT, AGE INDETERMINATE ABNORMAL ECG COMPARED TO ECG 05/18/2021 09:20:29 HEART RATE HAS INCREASED Electronically Signed On 03-16-2022 18:06:54 CDT by Camilo Parrish M.D.
[2022-03-16 13:28] LABS: Alanine Aminotransferase 141 U/L (4-35); Albumin Level 3.9 g/dL (3.5-5.1); Alkaline Phosphatase 68 U/L (38-126); Anion Gap 8 mmol/L (8-16); Aspartate Amino Transferase 145 U/L (14-36); Blood Urea Nitrogen 11 mg/dL (7-17); Calcium 9.5 mg/dL (8.4-10.2); Carbon Dioxide 26 mmol/L (22-30); Chloride 101 mmol/L (98-107); Estimated CRCL calculation 35 ml/min; Estimated Glomerular Filt Rate 48; Glucose 109 mg/dL (65-110); Potassium 3.7 mmol/L (3.4-5.0); Sodium 135 mmol/L (137-145)
[2022-03-16 13:35] LABS: Basophils Absolute Auto 0.1 K/mm3 (0.0-0.1); Basophils Percent Auto 0.6 % (0.2-1.2); Eosinophils Absolute Auto 0.4 K/mm3 (0-0.3); Eosinophils Percent Auto 3.4 % (0-4.4); Hematocrit 43.1 % (37.0-47.0); Hemoglobin 13.6 g/dL (12.0-15.0); Immature Granulocyte Absolute 0.17 K/mm3 (0.00-0.031); Immature Granulocyte Percent A 1.5 % (0-0.5); Lymphocytes Absolute Auto 2.72 K/mm3 (0.9-3.2); Lymphocytes Percent Auto 24.6 % (18.3-44.2); Mean Corpuscular HGB Conc 31.6 g/dl (32-36); Mean Corpuscular Hemoglobin 27.3 pg (26-34); Mean Corpuscular Volume 86.5 fl (80-100); Mean Platelet Volume 9.5 fl (7.4-10.4); Monocytes Absolute Auto 0.8 K/mm3 (0.1-0.6); Monocytes Percent Auto 7.2 % (2.6-8.5); Neutrophils Absolute Auto 6.9 K/mm3 (1.3-6.7); Neutrophils Percent Auto 62.7 % (45.5-73.1); Platelet Count Result 217 k/mm3 (150-375); Red Blood Count 4.98 M/mm3 (4.2-5.4); Red Cell Distribution Width 15.9 % (11.5-14.5); White Blood Count 11.1 K/mm3 (4.5-10.0)
[2022-03-16] MEDS: SODIUM CHLORIDE 0.9% IV 1,000 ML 999 ML IV CONT (14:23)
--- NOTE | 2022-03-16 15:49 | ED.GENADULT ---
HPI - General Adult General Chief complaint: Recheck/Abnormal Lab/Rx Stated complaint: weakness, abn labs Time Seen by Provider: 03/16/22 12:20 Source: patient and family Mode of arrival: wheelchair History of Present Illness HPI narrative: 81-year-old with a history of hypertension was brought in from home with complaints of marked weakness. As per the she has been not feeling well for past 1 week. She had diarrhea for 4 days this morning he was unable to get her walk , she denies any headache, chest pain or shortness of breath. As per the EMS patient had outpatient lab work done yesterday which showed hypernatremia. No history of fever or chills. states that she had melanoma removed by Dr. Weaver a week ago and ever since then she has been declining. Onset (ago): week(s) (1) Severity: moderate Associated symptoms: denies other symptoms Related Data Home Medications Medication Instructions Recorded Confirmed calcium carbonate-vitamin D3 1 cap PO BID 09/16/19 02/28/22 aspirin 325 mg tablet 325 mg PO DAILY 06/07/21 02/28/22 Allergies Allergy/AdvReac Type Severity Reaction Status Date / Time No Known Allergies Allergy Verified 03/16/22 12:21 Review of Systems Review of Systems: All systems reviewed & are unremarkable except as noted in HPI and below Constitutional: Constitutional: Reports no additional constitutional complaints Eyes: Eyes: Reports no additional eye complaints ENT: Reports system reviewed and no additional complaints, except as documented Cardiovascular: Cardiovascular: Reports no additional cardiovascular complaints Respiratory: Respiratory: Reports no additional respiratory complaints Gastrointestinal: Gastrointestinal: Reports no additional gastrointestinal complaints Musculoskeletal: Musculoskeletal: Reports as per HPI Neurologic: Reports system reviewed and no additional complaints, except as documented Psychiatric: Psychiatric: Reports no additional psychiatric complaints [facility] Past Medical History Medical History Actinic keratosis Anxiety Basal cell carcinoma (BCC) of right nasal sidewall Chronic gout CKD (chronic kidney disease) stage 3, GFR 30-59 ml/min 2016 Depression DVT (deep venous thrombosis) History of basal cell carcinoma History of melanoma 0.5 mm September 2018 History of TIA (transient ischemic attack) History of venous thromboembolism (05/2019) Malignant melanoma of right lateral thigh Obesity Renal disease Stage 3 - 2010 Tinnitus Tremor of both hands Type 2 diabetes mellitus without complication, without long-term current use of insulin Vitamin D deficiency Surgical History Surgical History History of melanoma excision right thigh - 10/14 and 05/17 Family History Family History Sibling Family history of cardiovascular disease, Onset Age: 61 Social History Social History Second hand tobacco smoke exposure: No Alcohol intake: former 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 Substance use: never Substance use type: does not use Additional living arrangements comments: HUSB Gender identity (if verbalized by the patient): Female Spiritual care concerns: No Exam Narrative: GENERAL: ill-appearing, well-nourished, and in no acute distress. HEAD: Normocephalic, atraumatic. EYES: PERRLA and EOMI. NECK: Supple. CHEST: Clear to auscultation. No respiratory distress. HEART: Regular rate and rhythm. No murmur heard. Normal peripheral pulses. ABDOMEN: Soft, nontender, nondistended, normal active bowel sounds. EXTREMITIES: Normal range of motion. No edema. SKIN: Warm, dry, no rash. NEURO: No focal deficits. Alert and oriented x3. PSYCH: Normal mood and affect. Course Course Emergency Co
--- NOTE | 2022-03-16 16:15 | PM.IMHP ---
H&P: HPI History of Present Illness Date/Time: 03/16/22 16:15 Chief Complaint: Weakness. Narrative: This is an 81-year-old female with hypertension and metastatic malignant melanoma to liver and lungs who presented to the emergency department from home for evaluation of weakness. Last Monday and she had pretty significant diarrhea which has since resolved however she has had a poor appetite since that time with a significant decrease in oral intake. She has become increasingly weak and has been relying on her walker since her illness last week. The past 2 days she has not been able to really get up out of bed due to weakness and lightheadedness. Yesterday she had outpatient labs drawn for evaluation and she was told to come to the ER today as she was reportedly hypernatremic though that was not corroborated on labs drawn today. In the emergency department today has required a 2 person assist when getting up and her reports that she slid to the ground when she attempted to stand up this morning and could not hold her own weight. Aside from poor appetite and generalized weakness she has no specific complaints. She denies head trauma and loss of consciousness in the fall and she reports sustaining no injuries. She has not had fever, chills, or sweats. No vertigo, syncope, or near-syncope although she reports feeling lightheaded when standing. She denies cold and flu symptoms and has no sick contacts. No chest pain, pleuritic pain, or palpitations. No cough shortness of breath. She has had nausea but no vomiting or diarrhea. No dysuria, frequency, or urgency. She also denies low back pain, focal weakness, paresthesias, saddle anesthesia, and incontinence. Review of Systems Review of Systems: Twelve systems were reviewed and are negative except for as per HPI. FOR[facility]LY [facility] Past Medical History Medical History (Updated 03/16/22 @ 23:29 by Sanam Mancilla PA-C) Actinic keratosis Anxiety Basal cell carcinoma (BCC) of right nasal sidewall Cerebrovascular accident Mild right leg weakness. Chronic gout CKD (chronic kidney disease) stage 3, GFR 30-59 ml/min Deep venous thrombosis Depression History of basal cell carcinoma Hypertension Malignant melanoma of right lateral thigh Metastatic malignant melanoma Patient of Dr. Gio Irving. Status post resection x2, right thigh. Keytruda 06/2021 through 11/2021. Ipilimumab and nivolumab x4 weeks 11/2021 for progression of disease. Obesity Tinnitus Transient ischemic attack Tremor of both hands Type 2 diabetes mellitus without complication, without long-term current use of insulin Vitamin D deficiency Surgical History Surgical History (Updated 03/16/22 @ 23:24 by Sanam Mancilla PA-C) History of melanoma excision Right thigh - 10/14 and 05/17 Family History Family History (Updated 03/16/22 @ 23:26 by Sanam Mancilla PA-C) Sibling Acute myocardial infarction Mother Family history of cardiovascular disease Father Coronary artery disease Social History Social History (Updated 03/16/22 @ 23:25 by Sanam Mancilla PA-C) Social History: Surrogate decision maker: Danyel Franciscoalla, . Code status: Full code. Smoking status: Never smoker Second hand tobacco smoke exposure: No Alcohol intake: never Substance use: never Living arrangements: with family Additional living arrangements comments: Patient lives with her in [place]. Spiritual care concerns: Yes (restoration) Meds Home Medications and Allergies Home Medications Medication Instructions Recorded Confirmed Type calcium carbonate-vitamin D3 1 cap PO DAILY 09/16/19 03/16/22 History aspirin 325 mg tablet 325 mg PO DAILY 06/07/21 03/16/22 History metoprolol succinate 100 mg 100 mg PO QAM #90 tablet 12/08/21 03/16/22 Rx tablet,extended release 24 hr amlodipine 5 mg tablet 5 mg PO DAILY #90 tablet 02/28/22 03/16/22 Rx Allergies Allergy/AdvReac Type
[2022-03-16] MEDS: SODIUM CHLORIDE 0.9% IV 1,000 ML 125 ML IV CONT (18:05)
--- NOTE | 2022-03-16 18:36 | ADMGEN ---
This patient, Teresa Chew, was admitted to [facility] S[facility] Room 305-01. Patient/family oriented to hospital policies and general routines including ID bracelet, bed and alarms, visiting hours, pain management, procedures, bathroom and other care routines, personal items, smoking policy, room service/diet, and visiting hours. Information on how to activate the Rapid Response Team has been discussed. Patient/Family are encouraged to report perceived risks to care and to ask questions if they do not understand what they are told or what they should do.
[2022-03-17] VITALS (10 sets, daily range): BP systolic 114–135; BP diastolic 46–64; PULSE 107–131; RESP 18–20; TEMP 36.7–37.4; O2SAT 90–95; BMI 30.8
[2022-03-17 00:14] LABS: Anion Gap 6 mmol/L (8-16); Blood Urea Nitrogen 11 mg/dL (7-17); Calcium 8.7 mg/dL (8.4-10.2); Carbon Dioxide 24 mmol/L (22-30); Chloride 104 mmol/L (98-107); Estimated CRCL calculation 32 ml/min; Estimated Glomerular Filt Rate 48; Glucose 114 mg/dL (65-110); Potassium 3.7 mmol/L (3.4-5.0); Sodium 134 mmol/L (137-145)
[2022-03-17] MEDS: SODIUM CHLORIDE 0.9% IV 1,000 ML 125 ML IV CONT (03:16)
[2022-03-17 05:45] LABS: Basophils Absolute Auto 0.1 K/mm3 (0.0-0.1); Basophils Percent Auto 0.9 % (0.2-1.2); Eosinophils Absolute Auto 0.4 K/mm3 (0-0.3); Eosinophils Percent Auto 4.4 % (0-4.4); Hematocrit 39.4 % (37.0-47.0); Hemoglobin 12.4 g/dL (12.0-15.0); Immature Granulocyte Absolute 0.15 K/mm3 (0.00-0.031); Immature Granulocyte Percent A 1.6 % (0-0.5); Lymphocytes Absolute Auto 2.93 K/mm3 (0.9-3.2); Lymphocytes Percent Auto 31.3 % (18.3-44.2); Mean Corpuscular HGB Conc 31.5 g/dl (32-36); Mean Corpuscular Hemoglobin 27.2 pg (26-34); Mean Corpuscular Volume 86.4 fl (80-100); Mean Platelet Volume 9.6 fl (7.4-10.4); Monocytes Percent Auto 10.5 % (2.6-8.5); Neutrophils Absolute Auto 4.8 K/mm3 (1.3-6.7); Neutrophils Percent Auto 51.3 % (45.5-73.1); Platelet Count Result 226 k/mm3 (150-375); Red Blood Count 4.56 M/mm3 (4.2-5.4); Red Cell Distribution Width 15.9 % (11.5-14.5); White Blood Count 9.4 K/mm3 (4.5-10.0)
[2022-03-17 06:02] LABS: Alanine Aminotransferase 107 U/L (4-35); Alkaline Phosphatase 69 U/L (38-126); Aspartate Amino Transferase 106 U/L (14-36); Bilirubin,Total 0.9 mg/dL (0.2-1.3)
[2022-03-17 06:16] LABS: Alanine Aminotransferase 105 U/L (4-35); Albumin Level 3.2 g/dL (3.5-5.1); Alkaline Phosphatase 66 U/L (38-126); Anion Gap 6 mmol/L (8-16); Aspartate Amino Transferase 101 U/L (14-36); Bilirubin,Total 0.9 mg/dL (0.2-1.3); Blood Urea Nitrogen 9 mg/dL (7-17); Calcium 8.6 mg/dL (8.4-10.2); Carbon Dioxide 23 mmol/L (22-30); Chloride 105 mmol/L (98-107); Creatine Kinase 108 U/L (30-135); Estimated CRCL calculation 36 ml/min; Estimated Glomerular Filt Rate 53; Glucose 110 mg/dL (65-110); Lipase 26 U/L (23-300); Magnesium 1.5 mg/dL (1.6-2.3); Potassium 3.5 mmol/L (3.4-5.0); Sodium 134 mmol/L (137-145)
[2022-03-17 07:20] LABS: Free T4 Free Thyroxine Reflex 1.38 ng/dL (0.78-2.19)
[2022-03-17 07:37] LABS: CRP 14.1 mg/dL (<1.0)
[2022-03-17 08:21] LABS: Appearance Urine Cloudy (Clear); Bilirubin Urine Negative (Negative); Blood Urine 1+ (Negative); Color Urine Yellow (Yellow); Glucose Urine UA Negative (Negative); Ketones Urine 1+ mg/dL (Negative); Leukocyte Esterase Ur Trace LEU/UL (Negative); Nitrate Urine Positive (Negative); Protein Urine Negative (Negative); Urobilinogen Urine 0.2 mg/dL (<2.0); pH Urine 5.5 (5.0-9.0)
[2022-03-17 08:28] LABS: Bacteria Urine 4+ /hpf; Mucus Urine Rare /lpf
[2022-03-17 09:01] LABS: Add Urine Microscopic? YES
[2022-03-17] MEDS: amLODIPine BESYLATE 5 MG TABLET PO (09:27)
[2022-03-17] MEDS: ASPIRIN 325 MG TABLET PO (09:27)
[2022-03-17] MEDS: METOPROLOL SUCCINATE EXT REL 100 MG TABCR PO (09:28)
[2022-03-17 10:17] LABS: Total Triiodothyronine (T3) 1.33 NG/ML (0.97-1.69)
[2022-03-17 10:32] LABS: D Dimer 3.76 ug/mL (<0.48)
--- NOTE | 2022-03-17 11:02 | PM.IMPN ---
Progress Note: A&P Assessment and Plan (1) Abnormal urinalysis: Code(s): R82.90 - Unspecified abnormal findings in urine Status: Acute Assessment and Plan: -suspicious for UTI, especially in the setting of weakness -blood and urine cultures pending -Rocephin started 03/17/22 (2) Generalized weakness: Code(s): R53.1 - Weakness Status: Acute Assessment and Plan: -She has become progressively more weak over the past 7 days or so. -Likely due to above -No focal findings noted on exam and her brain CT showed no acute findings. -Initiate fall precautions. -PT/OT consulted. (3) Dehydration: Code(s): E86.0 - Dehydration Status: Acute Assessment and Plan: -Patient does appear dry on exam and she will be cautiously hydrated. -Labs drawn as an outpatient showed a sodium of 158 though I assume that was erroneously as labs on arrival do not corroborate. -Repeat BMP is 134 (4) Transaminitis: Code(s): R74.01 - Elevation of levels of liver transaminase levels Status: Acute Assessment and Plan: -May be related to metastatic malignant melanoma to the liver though this is higher than what she typically runs. -Abdominal exam today is benign. -Check hepatitis panel and RUQ US (5) CKD (chronic kidney disease) stage 3, GFR 30-59 ml/min: Qualifiers: Chronic kidney disease stage 3 subtype: stage 3a (GFR 45-59) Qualified Code(s): N18.31 - Chronic kidney disease, stage 3a Code(s): N18.3 - Chronic kidney disease, stage 3 (moderate) Status: Acute Assessment and Plan: -Creatinine is near baseline. (6) Hypertension: Code(s): I10 - Essential (primary) hypertension Status: Acute Assessment and Plan: -Blood pressures were reviewed and they are stable. -Continue antihypertensives and monitor. (7) Metastatic malignant melanoma: Code(s): C43.9 - Malignant melanoma of skin, unspecified Status: Acute Assessment and Plan: -Metastatic disease to the liver and lungs status post 4 week, 2 drug regimen in November 2021, as per medical history above. -CT of the abdomen and pelvis on 02/28/2022 showed improved lung and liver mets though noted a worsened 18 mm cystic lesion of the pancrea (8) Elevated d-dimer: Code(s): R79.89 - Other specified abnormal findings of blood chemistry Status: Acute Assessment and Plan: -high risk of PE with hx of metastatic melanoma and DVT, was previously on full strength aspirin daily -in setting of tachycardia and only 90% oxygen on RA d dimer was ordered which is markedly elevated -stat CTA today Subjective Date/time seen: 03/17/22 11:02 Interval history: 81-year-old female with hypertension, DVT, and metastatic malignant melanoma to liver and lungs, admitted for generalized weakness. Today she states she is feeling a little better. at bedside states she still seems weak but she is more alert today. She denies abdominal pain, N/V/dysuria/cp/sob. Review of Systems Review of Systems: All systems reviewed & are unremarkable except as noted in HPI and below Exam Narrative: General: Mildly ill-appearing, NAD, elderly. HEENT: Normocephalic, atraumatic. PERRL. Sclerae anicteric. Neck: Supple. Respiratory: Lungs are clear to auscultation bilaterally. Cardiovascular: Tachycardic, regular rhythm Gastrointestinal: Abdomen is soft, nontender, and nondistended with positive bowel sounds. Skin: Warm and dry. No rash or lesions on limited exam. Extremities: No significant edema. Radial and pedal pulses intact. Spine: No midline vertebral tenderness. Neurological: Alert and oriented. Cranial nerves 2-12 are grossly intact. Speech is clear. No facial asymmetry. Psychiatric: Pleasant and cooperative. Flat affect. Objective Data Vital Signs Vital Signs: Vital Signs - 2
--- NOTE | 2022-03-17 11:16 | PCNSR ---
On 03/17/22, the student, Porsha Perez, provided care and completed [facility] documentation on this patient. I have reviewed the student's documentation and agree with the findings.
[2022-03-17 12:35] LABS: Basophils Absolute Auto 0.1 K/mm3 (0.0-0.1); Basophils Percent Auto 0.6 % (0.2-1.2); Eosinophils Absolute Auto 0.4 K/mm3 (0-0.3); Hematocrit 40.8 % (37.0-47.0); Hemoglobin 12.8 g/dL (12.0-15.0); Immature Granulocyte Absolute 0.18 K/mm3 (0.00-0.031); Immature Granulocyte Percent A 1.9 % (0-0.5); Lymphocytes Absolute Auto 2.41 K/mm3 (0.9-3.2); Mean Corpuscular HGB Conc 31.4 g/dl (32-36); Mean Corpuscular Hemoglobin 27.2 pg (26-34); Mean Corpuscular Volume 86.8 fl (80-100); Mean Platelet Volume 9.2 fl (7.4-10.4); Monocytes Absolute Auto 0.8 K/mm3 (0.1-0.6); Monocytes Percent Auto 8.7 % (2.6-8.5); Neutrophils Absolute Auto 5.4 K/mm3 (1.3-6.7); Neutrophils Percent Auto 58.8 % (45.5-73.1); Platelet Count Result 230 k/mm3 (150-375); White Blood Count 9.3 K/mm3 (4.5-10.0)
[2022-03-17 12:44] LABS: INR 1.4; Prothrombin Time 17.1 Seconds (11.1-14.7)
[2022-03-17] MEDS: HEPARIN SODIUM 5,000 UNITS/ML VIAL 4500 UNITS IV PUSH (13:30)
[2022-03-17] MEDS: HEPARIN SOD/D5W 100 UNITS/ML 25,000 UNITS/250 ML BAG 10 UNITS IV CONT (13:30)
--- NOTE | 2022-03-17 14:32 | PC.NURSE ---
On 03/17/22, the student, [ Sruthi Bo], provided care and completed [facility] documentation on this patient. I have reviewed the student's documentation and agree with the findings.
[2022-03-17 19:51] LABS: Partial Thromboplastin Time 85.5 SECONDS (22.3-36.8)
--- NOTE | 2022-03-17 20:01 | PC.NURSE ---
03/17/221999 aptt result 85.5 according to protocol no change.
[2022-03-17] MEDS: TOLNAFTATE 1% POWDER 45 GM BTL 1 APPLIC TOPICAL (21:06)
--- NOTE | 2022-03-17 22:39 | ECG_ITS ---
Measurements Intervals [place] Rate: 127 P: 54 VT: 153 QRS: -15 QRSD: 81 T: 53 QT: 322 QTc: 469 Interpretive Statements SINUS TACHYCARDIA WITH OCCASIONAL SUPRAVENTRICULAR PREMATURE COMPLEXES POSSIBLE INFERIOR MYOCARDIAL INFARCTION , PROBABLY OLD [30 ms Q WAVE IN II/aVF] ABNORMAL RHYTHM ECG COMPARED TO ECG 03/16/2022 12:16:48 NO SIGNIFICANT CHANGE Electronically Signed On 03-18-2022 15:07:38 CDT by Oliverio Jackson M.D.
[2022-03-18] VITALS (11 sets, daily range): BP systolic 102–122; BP diastolic 40–54; PULSE 101–126; RESP 16–20; TEMP 36.3–37.6; O2SAT 89–95
[2022-03-18 03:11] LABS: Basophils Absolute Auto 0.1 K/mm3 (0.0-0.1); Basophils Percent Auto 0.5 % (0.2-1.2); Eosinophils Absolute Auto 0.4 K/mm3 (0-0.3); Eosinophils Percent Auto 2.7 % (0-4.4); Hematocrit 42.3 % (37.0-47.0); Hemoglobin 13.2 g/dL (12.0-15.0); Immature Granulocyte Absolute 0.24 K/mm3 (0.00-0.031); Immature Granulocyte Percent A 1.7 % (0-0.5); Lymphocytes Absolute Auto 3.88 K/mm3 (0.9-3.2); Mean Corpuscular HGB Conc 31.2 g/dl (32-36); Mean Corpuscular Hemoglobin 26.9 pg (26-34); Mean Corpuscular Volume 86.3 fl (80-100); Mean Platelet Volume 9.4 fl (7.4-10.4); Monocytes Absolute Auto 1.2 K/mm3 (0.1-0.6); Monocytes Percent Auto 8.4 % (2.6-8.5); Neutrophils Absolute Auto 8.2 K/mm3 (1.3-6.7); Neutrophils Percent Auto 58.7 % (45.5-73.1); Platelet Count Result 258 k/mm3 (150-375); Red Cell Distribution Width 15.8 % (11.5-14.5); White Blood Count 13.9 K/mm3 (4.5-10.0)
[2022-03-18 03:23] LABS: Partial Thromboplastin Time 104.9 SECONDS (22.3-36.8)
[2022-03-18 03:28] LABS: Alanine Aminotransferase 81 U/L (4-35); Albumin Level 3.1 g/dL (3.5-5.1); Alkaline Phosphatase 78 U/L (38-126); Anion Gap 7 mmol/L (8-16); Aspartate Amino Transferase 78 U/L (14-36); Blood Urea Nitrogen 9 mg/dL (7-17); Calcium 8.6 mg/dL (8.4-10.2); Carbon Dioxide 22 mmol/L (22-30); Chloride 105 mmol/L (98-107); Estimated CRCL calculation 32 ml/min; Estimated Glomerular Filt Rate 48; Glucose 154 mg/dL (65-110); Potassium 3.6 mmol/L (3.4-5.0); Sodium 134 mmol/L (137-145)
--- NOTE | 2022-03-18 03:28 | PC.NURSE ---
03/18/22 0327 ptt result 104.9 per protocol no changes.
[2022-03-18 04:30] LABS: Hepatitis B Surface Antigen Negative (Negative)
[2022-03-18 04:35] LABS: HAV RESULT Negative (Negative); Hepatitis B Core IgM Result Negative (Negative)
[2022-03-18 04:53] LABS: Hepatitis C Virus Antibody Negative (Negative)
[2022-03-18] MEDS: HEPARIN SOD/D5W 100 UNITS/ML 25,000 UNITS/250 ML BAG 10 UNITS IV CONT (08:18)
[2022-03-18] MEDS: METOPROLOL SUCCINATE EXT REL 100 MG TABCR PO (09:33)
[2022-03-18] MEDS: ASPIRIN 325 MG TABLET PO (09:34)
[2022-03-18] MEDS: amLODIPine BESYLATE 5 MG TABLET PO (09:34)
[2022-03-18 10:02] LABS: Partial Thromboplastin Time 84.6 SECONDS (22.3-36.8)
[2022-03-18] MEDS: TOLNAFTATE 1% POWDER 45 GM BTL 1 APPLIC TOPICAL ×2 (10:04→20:59)
--- NOTE | 2022-03-18 10:14 | PM.IMPN ---
Progress Note: A&P Assessment and Plan (1) Pulmonary embolism: Code(s): I26.99 - Other pulmonary embolism without acute cor pulmonale Status: Acute Assessment and Plan: -high risk of PE with hx of metastatic melanoma and DVT, was previously on full strength aspirin daily -in setting of tachycardia and only 90% oxygen on RA d dimer was ordered which is markedly elevated -stat CTA yesterday showed bilateral PE -heparin drip was initiated per protocol -has been on Xarelto in the past, will likely switch back to this at discharge (2) UTI (urinary tract infection): Code(s): N39.0 - Urinary tract infection, site not specified Status: Acute Assessment and Plan: -UA suspicious for UTI, especially in the setting of weakness -blood cultures pending -Rocephin started 03/17/22 -Urine culture w/ E. Coli sensitive to Rocephin (3) Generalized weakness: Code(s): R53.1 - Weakness Status: Acute Assessment and Plan: -She has become progressively more weak over the past 7 days or so. -Likely due to above -No focal findings noted on exam and her brain CT showed no acute findings. -Initiate fall precautions. -PT/OT consulted. (4) Dehydration: Code(s): E86.0 - Dehydration Status: Acute Assessment and Plan: -Patient does appear dry on exam and she will be cautiously hydrated. -Labs drawn as an outpatient showed a sodium of 158 though I assume that was erroneously as labs on arrival do not corroborate. -Repeat BMP is 134 (5) Transaminitis: Code(s): R74.01 - Elevation of levels of liver transaminase levels Status: Acute Assessment and Plan: -May be related to metastatic malignant melanoma to the liver though this is higher than what she typically runs. -Abdominal exam is benign -Hepatitis panel negative -RUQ US with diffuse hepatic steatosis and gallbladder distension likely due to fasting. No gallstones or gallbladder wall thickening to suggest cholecystitis. -Improving -Repeat CMP tomorrow (6) CKD (chronic kidney disease) stage 3, GFR 30-59 ml/min: Qualifiers: Chronic kidney disease stage 3 subtype: stage 3a (GFR 45-59) Qualified Code(s): N18.31 - Chronic kidney disease, stage 3a Code(s): N18.3 - Chronic kidney disease, stage 3 (moderate) Status: Acute Assessment and Plan: -Creatinine is near baseline. (7) Hypertension: Code(s): I10 - Essential (primary) hypertension Status: Acute Assessment and Plan: -Blood pressures were reviewed and they are stable. -Continue antihypertensives and monitor. (8) Metastatic malignant melanoma: Code(s): C43.9 - Malignant melanoma of skin, unspecified Status: Acute Assessment and Plan: -Metastatic disease to the liver and lungs status post 4 week, 2 drug regimen in November 2021, as per medical history noted in HPI. -CT of the abdomen and pelvis on 02/28/2022 showed improved lung and liver mets though noted a worsened 18 mm cystic lesion of the pancreas Subjective Date/time seen: 03/18/22 10:14 Interval history: 81-year-old female with hypertension, DVT, and metastatic malignant melanoma to liver and lungs, admitted for generalized weakness. Pt is A/Ox2-3 today with some confusion. Very somnolent. Was not verbal with RN this morning but was able to answer some questions for me. Denies pain anywhere. Denies cp/sob. at bedside says she is less alert today. He is her POA and reiterates that she is a DNR, paperwork is at her PCP and we are trying to get it faxed over. Apparently she told care coordination yesterday that she was a full code, however in her current state of confusion I will keep her DNR per her current POLST form and POAs wishes. Review of Systems Review of Systems: ROS unobtainable: Yes unobtainable due to mental status Exam Narrative: Marissa
[2022-03-18] MEDS: SODIUM CHLORIDE 0.9% IV 1,000 ML 75 ML IV CONT (13:49)
[2022-03-19] VITALS (12 sets, daily range): BP systolic 95–135; BP diastolic 47–64; PULSE 97–111; RESP 16; TEMP 36.3–38.2; O2SAT 90–96
[2022-03-19] MEDS: ACETAMINOPHEN 325 MG TABLET 650 MG PO ×2 (02:56→20:32)
[2022-03-19] MEDS: SODIUM CHLORIDE 0.9% IV 1,000 ML 75 ML IV CONT (03:03)
--- NOTE | 2022-03-19 07:30 | PM.IMPN ---
Progress Note: A&P Assessment and Plan (1) Pulmonary embolism: Code(s): I26.99 - Other pulmonary embolism without acute cor pulmonale Status: Acute Assessment and Plan: -high risk of PE with hx of metastatic melanoma and DVT, was previously on full strength aspirin daily -in setting of tachycardia and only 90% oxygen on RA -d dimer was elevated -CTA showed acute bilateral PE -heparin drip was initiated per protocol, transitioned to Xarelto (2) UTI (urinary tract infection): Code(s): N39.0 - Urinary tract infection, site not specified Status: Acute Assessment and Plan: -UA suspicious for UTI, especially in the setting of weakness -blood cultures No growth to date -Rocephin, changed to PO Augmentin -Urine culture w/ E. Coli -Trend urine output -Strict I&O (3) Generalized weakness: Code(s): R53.1 - Weakness Status: Acute Assessment and Plan: -She has become progressively more weak over the past 7 days or so. -Likely due to above -No focal findings noted on exam and her brain CT showed no acute findings. -Initiate fall precautions. -PT/OT consulted. (4) Transaminitis: Code(s): R74.01 - Elevation of levels of liver transaminase levels Status: Acute Assessment and Plan: -May be related to metastatic malignant melanoma to the liver though this is higher than what she typically runs. -Current AST/ALT 47/47 -Abdominal exam is benign -Hepatitis panel negative -RUQ US with diffuse hepatic steatosis and gallbladder distension likely due to fasting. No gallstones or gallbladder wall thickening to suggest cholecystitis. -Improving, continue to trend -Repeat CMP tomorrow (5) CKD (chronic kidney disease) stage 3, GFR 30-59 ml/min: Qualifiers: Chronic kidney disease stage 3 subtype: stage 3a (GFR 45-59) Qualified Code(s): N18.31 - Chronic kidney disease, stage 3a Code(s): N18.3 - Chronic kidney disease, stage 3 (moderate) Status: Acute Assessment and Plan: -Current Cr 0.90 -Baseline looks to be 0.90-1.20 -Trend creatinine -Avoid nephrotoxic medications -Hydrated through the night (6) Hypertension: Code(s): I10 - Essential (primary) hypertension Status: Acute Assessment and Plan: -Current BP is 119/47 -Blood pressures were reviewed and they are stable. -Continue antihypertensives amlodipine and metoprolol -Trend BP -Adjust therapy as indicated (7) Metastatic malignant melanoma: Code(s): C43.9 - Malignant melanoma of skin, unspecified Status: Acute Assessment and Plan: -Metastatic disease to the liver and lungs status post 4 week, 2 drug regimen in November 2021, as per medical history noted in HPI. -CT of the abdomen and pelvis on 02/28/2022 showed improved lung and liver mets though noted a worsened 18 mm cystic lesion of the pancreas -Sees Aristides -Restarted Chemo 12/09/21 -Unsure of last treatment at this time (8) Hypomagnesemia: Code(s): E83.42 - Hypomagnesemia Status: Acute Assessment and Plan: -Mg 1.3 -Replace with 4gm once -Trend mag -Labs in the am Time Spent With Patient Time with patient: Greater than 35 minutes Subjective Date/time seen: 03/19/22 07:30 Interval history: Date/Time: 03/16/22 16:15 Narrative: This is an 81-year-old female with hypertension and metastatic malignant melanoma to liver and lungs who presented to the emergency department from home for evaluation of weakness. Last Monday and she had pretty significant diarrhea which has since resolved however she has had a poor appetite since that time with a significant decrease in oral intake. She has become increasingly weak and has been relying on her walker since her illness last week. The past 2 days she has not been able to really get up out of bed due to weakness and lightheadedness. Yesterday benito
[2022-03-19] MEDS: amLODIPine BESYLATE 5 MG TABLET PO (08:08)
[2022-03-19] MEDS: METOPROLOL SUCCINATE EXT REL 100 MG TABCR PO (08:08)
[2022-03-19] MEDS: ASPIRIN 81 MG ENTERIC TABLET PO (08:10)
[2022-03-19] MEDS: AMOXICILLIN/CLAVULANATE K 875-125 MG TAB 1 TABLET PO ×2 (08:10→20:32)
[2022-03-19] MEDS: TOLNAFTATE 1% POWDER 45 GM BTL 1 APPLIC TOPICAL ×2 (08:10→20:33)
[2022-03-19] MEDS: RIVAROXABAN 15 MG TABLET PO ×2 (08:10→17:27)
[2022-03-19 08:59] LABS: Basophils Absolute Auto 0.1 K/mm3 (0.0-0.1); Basophils Percent Auto 0.7 % (0.2-1.2); Eosinophils Absolute Auto 0.6 K/mm3 (0-0.3); Hematocrit 34.8 % (37.0-47.0); Hemoglobin 10.9 g/dL (12.0-15.0); Immature Granulocyte Absolute 0.12 K/mm3 (0.00-0.031); Lymphocytes Absolute Auto 2.55 K/mm3 (0.9-3.2); Mean Corpuscular HGB Conc 31.3 g/dl (32-36); Mean Corpuscular Hemoglobin 27.3 pg (26-34); Mean Corpuscular Volume 87.2 fl (80-100); Mean Platelet Volume 9.4 fl (7.4-10.4); Monocytes Absolute Auto 0.9 K/mm3 (0.1-0.6); Monocytes Percent Auto 7.8 % (2.6-8.5); Neutrophils Absolute Auto 7.8 K/mm3 (1.3-6.7); Neutrophils Percent Auto 64.5 % (45.5-73.1); Platelet Count Result 243 k/mm3 (150-375); Red Blood Count 3.99 M/mm3 (4.2-5.4); Red Cell Distribution Width 15.9 % (11.5-14.5); White Blood Count 12.1 K/mm3 (4.5-10.0)
[2022-03-19 09:10] LABS: Alanine Aminotransferase 47 U/L (4-35); Albumin Level 2.6 g/dL (3.5-5.1); Alkaline Phosphatase 62 U/L (38-126); Anion Gap 6 mmol/L (8-16); Aspartate Amino Transferase 47 U/L (14-36); Bilirubin,Total 0.9 mg/dL (0.2-1.3); Blood Urea Nitrogen 13 mg/dL (7-17); Calcium 7.4 mg/dL (8.4-10.2); Carbon Dioxide 21 mmol/L (22-30); Chloride 107 mmol/L (98-107); Estimated CRCL calculation 40 ml/min; Estimated Glomerular Filt Rate 60; Glucose 125 mg/dL (65-110); Magnesium 1.3 mg/dL (1.6-2.3); Potassium 3.4 mmol/L (3.4-5.0); Sodium 134 mmol/L (137-145)
[2022-03-19 09:19] LABS: NT Pro B Type Natriuretic Pept 206 pg/mL (5-100)
[2022-03-19 09:44] LABS: Partial Thromboplastin Time 119.6 SECONDS (22.3-36.8)
[2022-03-19] MEDS: FUROSEMIDE INJ 40 MG/4 ML VIAL IV PUSH (10:00)
[2022-03-19] MEDS: MAGNESIUM SULF 4 GM/WATER100ML 4 GM/100 ML BAG IVPB (10:00)
--- NOTE | 2022-03-19 11:28 | PC.NURSE ---
While assessing pt this morning, she was alert and awake, communicating, able to move on her own a bit, and stated that she had no recollection of the last 36 hours. Yesterday she was nonverbal, not able to be directed, completely dependent, and not oriented. As the morning has progressed, she has become less alert and seemingly more confused but not to the level that she was yesterday.
--- NOTE | 2022-03-19 17:44 | PC.NURSE ---
pt's mentation and alertness have decreased throughout the day. pt is more alert than yesterday but is having longer periods of disorientation, distraction, and blank staring as the day progresses.
[2022-03-20] VITALS (15 sets, daily range): BP systolic 108–150; BP diastolic 49–69; PULSE 94–139; RESP 16–22; TEMP 36–37.8; O2SAT 82–98
--- NOTE | 2022-03-20 03:40 | ECG_ITS ---
Measurements Intervals [place] Rate: 128 P: [place]: 0 QRS: 2 QRSD: 83 T: 32 QT: 316 QTc: 462 Interpretive Statements ATRIAL FIBRILLATION WITH RAPID VENTRICULAR RESPONSE ABNORMAL RHYTHM ECG COMPARED TO ECG 03/17/2022 22:51:29 ATRIAL FIBRILLATION NOW PRESENT Electronically Signed On 03-20-2022 8:06:44 CDT by Oliverio Jackson M.D.
[2022-03-20] MEDS: POTASSIUM CHLORIDE 20 MEQ TABLET 40 MEQ PO (04:15)
[2022-03-20] MEDS: SODIUM CHLORIDE 0.9% IV 500 ML IV CONT (04:15)
[2022-03-20] MEDS: METOPROLOL SUCCINATE EXT REL 50 MG TABCR PO ×3 (04:16→21:03)
[2022-03-20 04:29] LABS: Magnesium 1.9 mg/dL (1.6-2.3)
[2022-03-20] MEDS: MAGNESIUM SULF 1 GM/D5W 100 ML 1 GM/100 ML BAG IVPB (04:46)
--- NOTE | 2022-03-20 06:29 | PC.NURSE ---
03/20/22 0629 pt resting in bed alert w/ episodes of confusion. pt denies pain and sob. pt was asleep when hr on the tele monitor 130's-150's. pt at rest in no acute distress. pt verbal answering appropriately. turned and repositioned every 2 hours and prn. pt does assist w/turning. pt tolerated po meds w/o difficulty. pt asked for the bedpan. dr merlos contacted with new orders.
[2022-03-20 07:20] LABS: Basophils Absolute Auto 0.1 K/mm3 (0.0-0.1); Basophils Percent Auto 0.6 % (0.2-1.2); Eosinophils Absolute Auto 0.6 K/mm3 (0-0.3); Eosinophils Percent Auto 6.1 % (0-4.4); Hematocrit 36.2 % (37.0-47.0); Hemoglobin 11.2 g/dL (12.0-15.0); Immature Granulocyte Absolute 0.09 K/mm3 (0.00-0.031); Immature Granulocyte Percent A 0.9 % (0-0.5); Lymphocytes Absolute Auto 1.49 K/mm3 (0.9-3.2); Lymphocytes Percent Auto 14.3 % (18.3-44.2); Mean Corpuscular HGB Conc 30.9 g/dl (32-36); Mean Corpuscular Hemoglobin 26.9 pg (26-34); Mean Platelet Volume 9.6 fl (7.4-10.4); Monocytes Absolute Auto 0.8 K/mm3 (0.1-0.6); Monocytes Percent Auto 7.9 % (2.6-8.5); Neutrophils Absolute Auto 7.3 K/mm3 (1.3-6.7); Neutrophils Percent Auto 70.2 % (45.5-73.1); Platelet Count Result 256 k/mm3 (150-375); Red Blood Count 4.16 M/mm3 (4.2-5.4); Red Cell Distribution Width 15.9 % (11.5-14.5); White Blood Count 10.4 K/mm3 (4.5-10.0)
[2022-03-20 07:31] LABS: Alanine Aminotransferase 41 U/L (4-35); Albumin Level 2.8 g/dL (3.5-5.1); Alkaline Phosphatase 70 U/L (38-126); Anion Gap 4 mmol/L (8-16); Aspartate Amino Transferase 46 U/L (14-36); Bilirubin,Total 0.7 mg/dL (0.2-1.3); Blood Urea Nitrogen 15 mg/dL (7-17); Calcium 7.8 mg/dL (8.4-10.2); Carbon Dioxide 25 mmol/L (22-30); Chloride 102 mmol/L (98-107); Estimated CRCL calculation 37 ml/min; Estimated Glomerular Filt Rate 53; Glucose 125 mg/dL (65-110); Magnesium 2.2 mg/dL (1.6-2.3); Potassium 3.7 mmol/L (3.4-5.0); Sodium 131 mmol/L (137-145)
--- NOTE | 2022-03-20 07:49 | ECG_ITS ---
Measurements Intervals [place] Rate: 107 P: 19 [place]: 132 QRS: -7 QRSD: 81 T: 30 QT: 337 QTc: 450 Interpretive Statements SINUS TACHYCARDIA WITH OCCASIONAL SUPRAVENTRICULAR PREMATURE COMPLEXES INFERIOR MYOCARDIAL INFARCTION , OF INDETERMINATE AGE [40+ ms Q WAVE AND/OR ST/T ABNORMALITY IN II/aVF] COMPARED TO ECG 03/20/2022 03:50:20 SINUS TACHYCARDIA NOW PRESENT LOSS OF R-WAVE VOLTAGE IN AVF Electronically Signed On 03-20-2022 8:11:41 CDT by Oliverio Jackson M.D.
[2022-03-20] MEDS: RIVAROXABAN 15 MG TABLET PO ×2 (09:36→17:34)
[2022-03-20] MEDS: AMOXICILLIN/CLAVULANATE K 875-125 MG TAB 1 TABLET PO ×2 (09:36→21:03)
[2022-03-20] MEDS: ASPIRIN 81 MG ENTERIC TABLET PO (09:36)
[2022-03-20] MEDS: amLODIPine BESYLATE 5 MG TABLET PO (09:36)
[2022-03-20] MEDS: TOLNAFTATE 1% POWDER 45 GM BTL 1 APPLIC TOPICAL ×2 (09:37→21:04)
--- NOTE | 2022-03-20 09:59 | PM.CNCAR ---
Assessment and Plan Additional Plan This is an 81-year-old lady who has metastatic melanoma and presumably a hypercoagulable state because of this. She now has bilateral pulmonary emboli an episode of self-limited atrial fibrillation yesterday presumably as a result of this. She is back in sinus rhythm and was unaware of the atrial fibrillation when it was going on yesterday. Obviously systemically anticoagulation is indicated I would probably continue this indefinitely given her underlying malignancy. If she has recurrences of atrial fibrillation that are problematic I will consider advancing antiarrhythmic medication for now I would leave her on the metoprolol. Fortunately her chest CT does not suggest metastatic spread to the pericardium for which this malignancy has a common tendency. Will follow her with you while she is in the hospital and review her echocardiogram when it is done. Oliverio Jackson MD [facility] History of Present Illness History of Present Illness Consult date/time: 03/20/22 09:59 Consult reason: atrial fibrillation Reason For Visit: Lower Extremity Weakness Narrative: This is an 81-year-old woman who I am seeing this morning at the request of the hospitalist because of atrial fibrillation. I have not seen her before and she denies any prior history of her knowledge of cardiac problems in the past. She came into the hospital several days ago with severe generalized weakness resulting in inability to stand up on her legs and ambulate which is apparently usually not her baseline and she is brought in the hospital for evaluation of this. She carries the diagnosis of hypertension as well as unfortunate diagnosis of metastatic malignant melanoma. She receives her oncology care here at [place] as well as her primary care. While she is in the hospital she has been placed on telemetry for some reason and yesterday it was noted that she developed atrial fibrillation and a 12 lead ECG was done to confirm this. I do not have exact information as to how long this persisted but she is back in sinus rhythm at this time and has a heart rate of about 100-105. She was not aware of the atrial fibrillation when it occurred she said she was not aware of the sense of tachy palpitations or any other increased distress. She had a CT of the chest done since admission which does demonstrate bilateral lower lobe acute pulmonary emboli. The CT study does not show any obvious structural cardiac problems and importantly does not show a pericardial effusion. She is supine in bed with the head of the bed elevated at about 30? when I came in the room to see her she offers no other complaints or distress at this time. Because of the pulmonary emboli she has been started on systemic anticoagulation with Xarelto. Her melanoma according to the records is known to be metastatic to the liver and the lung. Review of Systems Constitutional: Constitutional: Reports weakness Eyes: Eyes: Reports no additional eye complaints ENT: Reports system reviewed and no additional complaints, except as documented Cardiovascular: Cardiovascular: Reports no additional cardiovascular complaints Respiratory: Respiratory: Reports no additional respiratory complaints Gastrointestinal: Gastrointestinal: Reports no additional gastrointestinal complaints Musculoskeletal: Comments: Lower extremity weakness Integumentary/Breasts: Skin/Breast: Reports system reviewed and no additional complaints, except as docu Neurologic: Comments: Inability to ambulate/stand Endocrine: Endocrine: Reports no additional endocrine complaints Hematologic/Lymphatic: Hematologic/Lymphatic: Reports no additional hematologic/lymphatic complaints Allergic/Immunologic: Allergic/Immunologic: Reports no additional allergic/immunologic complaints [facility] Past Medical History Medical History (Updated 03/20/22 @ 07:45 by Jovany Bush, [employer]) Actinic keratosis Anxiety Basal cell carcinoma (BCC)
--- NOTE | 2022-03-20 11:45 | PM.IMPN ---
Progress Note: A&P Assessment and Plan (1) Afib: Code(s): I48.91 - Unspecified atrial fibrillation Status: Acute Assessment and Plan: EKG confirms Afib RVR with a rate in the 130 Probably the reason she has the PEs Metoprolol adjusted to BID 50mg PO She will need a cardiology follow up at some point Converted back to Sinus Tach Continue tele monitor Continue to trend heart rate Currently on anticoagulation with Xarelto and aspirin Electrolytes stable K 3.7, mag 2.2 Still awaiting echo Cardiology consulted thank you for your recommendations (2) Pulmonary embolism: Code(s): I26.99 - Other pulmonary embolism without acute cor pulmonale Status: Acute Assessment and Plan: -high risk of PE with hx of metastatic melanoma and DVT, was previously on full strength aspirin daily -in setting of tachycardia and only 90% oxygen on RA -d dimer was elevated -CTA showed acute bilateral PE -heparin drip was initiated per protocol, transitioned to Xarelto (3) UTI (urinary tract infection): Code(s): N39.0 - Urinary tract infection, site not specified Status: Acute Assessment and Plan: -UA suspicious for UTI, especially in the setting of weakness -blood cultures No growth to date -Rocephin, changed to PO Augmentin -Urine culture w/ E. Coli -Trend urine output -Strict I&O (4) Generalized weakness: Code(s): R53.1 - Weakness Status: Acute Assessment and Plan: -She has become progressively more weak over the past 7 days or so. -Likely due to above -No focal findings noted on exam and her brain CT showed no acute findings. -Initiate fall precautions. -PT/OT consulted. (5) Transaminitis: Code(s): R74.01 - Elevation of levels of liver transaminase levels Status: Acute Assessment and Plan: -May be related to metastatic malignant melanoma to the liver though this is higher than what she typically runs. -Current AST/ALT 46/41 -Abdominal exam is benign -Hepatitis panel negative -RUQ US with diffuse hepatic steatosis and gallbladder distension likely due to fasting. No gallstones or gallbladder wall thickening to suggest cholecystitis. -Improving, continue to trend -Repeat CMP tomorrow (6) CKD (chronic kidney disease) stage 3, GFR 30-59 ml/min: Qualifiers: Chronic kidney disease stage 3 subtype: stage 3a (GFR 45-59) Qualified Code(s): N18.31 - Chronic kidney disease, stage 3a Code(s): N18.3 - Chronic kidney disease, stage 3 (moderate) Status: Acute Assessment and Plan: -Current Cr 1.00 -Baseline looks to be 0.90-1.20 -Trend creatinine -Avoid nephrotoxic medications (7) Hypertension: Code(s): I10 - Essential (primary) hypertension Status: Acute Assessment and Plan: -Current BP is 110/57 -Blood pressures were reviewed and they are stable. -Continue antihypertensives amlodipine and metoprolol -Trend BP -Adjust therapy as indicated (8) Metastatic malignant melanoma: Code(s): C43.9 - Malignant melanoma of skin, unspecified Status: Acute Assessment and Plan: -Metastatic disease to the liver and lungs status post 4 week, 2 drug regimen in November 2021, as per medical history noted in HPI. -CT of the abdomen and pelvis on 02/28/2022 showed improved lung and liver mets though noted a worsened 18 mm cystic lesion of the pancreas -Anna Irving -Restarted Chemo 12/09/21 -Unsure of last treatment at this time (9) Hypomagnesemia: Code(s): E83.42 - Hypomagnesemia Status: Acute Assessment and Plan: -Mg 2.2 -Trend mag -Labs in the am (10) Hypoxia: Code(s): R09.02 - Hypoxemia Status: Acute Assessment and Plan: Intermittent with 2LNC Was noted that she was desating Will get apnea link tonight Seems that it could be some undiagnosed MARTÍNEZ
--- NOTE | 2022-03-20 18:09 | PC.NURSE ---
when I went to give pt her 1700 meds, she was nonverbal, not directable, and had a vacant stare. I checked pt's vitals and her pulse ox was 82% and 114. I administered oxygen via nasal canula until pt's pulse ox was at least 90% and then began weaning it down until she remained at least 90%. Pt's was in the room and had been feeding her instead of letting her attempt to feed herself or ask for our help. Pt was in a reclined position and her cheeks were full of unchewed food. Pt's keep shaking pt's cheek and stroking her throat telling her to eat with no response from pt.
[2022-03-21] VITALS (11 sets, daily range): BP systolic 131–143; BP diastolic 58–65; PULSE 115–128; RESP 20–30; TEMP 36.1–37.7; O2SAT 92–97
[2022-03-21 06:45] LABS: Basophils Absolute Auto 0.1 K/mm3 (0.0-0.1); Basophils Percent Auto 0.8 % (0.2-1.2); Eosinophils Absolute Auto 0.7 K/mm3 (0-0.3); Hematocrit 38.1 % (37.0-47.0); Hemoglobin 12.2 g/dL (12.0-15.0); Immature Granulocyte Absolute 0.12 K/mm3 (0.00-0.031); Immature Granulocyte Percent A 1.1 % (0-0.5); Lymphocytes Absolute Auto 3.08 K/mm3 (0.9-3.2); Lymphocytes Percent Auto 27.6 % (18.3-44.2); Mean Corpuscular Hemoglobin 27.4 pg (26-34); Mean Corpuscular Volume 85.4 fl (80-100); Mean Platelet Volume 10.1 fl (7.4-10.4); Neutrophils Absolute Auto 6.2 K/mm3 (1.3-6.7); Neutrophils Percent Auto 55.5 % (45.5-73.1); Platelet Count Result 347 k/mm3 (150-375); Red Blood Count 4.46 M/mm3 (4.2-5.4); Red Cell Distribution Width 15.9 % (11.5-14.5); White Blood Count 11.2 K/mm3 (4.5-10.0)
[2022-03-21 07:03] LABS: Alanine Aminotransferase 35 U/L (4-35); Albumin Level 2.9 g/dL (3.5-5.1); Alkaline Phosphatase 72 U/L (38-126); Anion Gap 6 mmol/L (8-16); Aspartate Amino Transferase 52 U/L (14-36); Bilirubin,Total 0.6 mg/dL (0.2-1.3); Blood Urea Nitrogen 15 mg/dL (7-17); Calcium 7.9 mg/dL (8.4-10.2); Carbon Dioxide 24 mmol/L (22-30); Chloride 101 mmol/L (98-107); Estimated CRCL calculation 30 ml/min; Estimated Glomerular Filt Rate 43; Glucose 117 mg/dL (65-110); Magnesium 1.7 mg/dL (1.6-2.3); Potassium 4.1 mmol/L (3.4-5.0); Sodium 131 mmol/L (137-145)
[2022-03-21] MEDS: ACETAMINOPHEN 325 MG TABLET 650 MG PO (07:54)
[2022-03-21] MEDS: METOPROLOL SUCCINATE EXT REL 50 MG TABCR PO (07:55)
[2022-03-21] MEDS: ASPIRIN 81 MG ENTERIC TABLET PO (07:55)
[2022-03-21] MEDS: AMOXICILLIN/CLAVULANATE K 875-125 MG TAB 1 TABLET PO (07:55)
[2022-03-21] MEDS: amLODIPine BESYLATE 5 MG TABLET PO (07:55)
[2022-03-21] MEDS: RIVAROXABAN 15 MG TABLET PO (07:56)
[2022-03-21] MEDS: TOLNAFTATE 1% POWDER 45 GM BTL 1 APPLIC TOPICAL (07:57)
--- NOTE | 2022-03-21 09:33 | PM.PNCARD ---
Progress Note: A&P Assessment and Plan (1) Afib: Code(s): I48.91 - Unspecified atrial fibrillation Status: Acute Assessment and Plan: Episode of self-limited atrial fibrillation earlier in her hospital stay. She converted to sinus rhythm which she remains in this morning. She is tachycardic this morning with a heart rate in the 120's. She is currently unable to take medicine p.o. and has missed several doses of her metoprolol. She is asymptomatic. Can give her some IV lopressor if her tachycardia becomes problematic/symptomatic but she is currently unaware of her fast heart rate. (2) Pulmonary embolism: Code(s): I26.99 - Other pulmonary embolism without acute cor pulmonale Status: Acute Assessment and Plan: Found to have bilateral pulmonary emboli. She is being anticoagulated for this with Xarelto. (3) Metastatic malignant melanoma: Code(s): C43.9 - Malignant melanoma of skin, unspecified Status: Acute Assessment and Plan: Followed by Dr. Irving Subjective Date/time seen: 03/21/22 09:33 Cardiology follow up for atrial fibrillation Alert today but minimally interactive. She does answer a few questions. Unfortunately she is unable to take her p.o medications now because of aspiration concerns so she has missed several doses of her metoprolol and as a result her heart rate is more elevated this morning. Review of Systems Constitutional: Constitutional: Reports weakness Eyes: Eyes: Reports no additional eye complaints ENT: Reports system reviewed and no additional complaints, except as documented Cardiovascular: Cardiovascular: Reports no additional cardiovascular complaints Respiratory: Respiratory: Reports no additional respiratory complaints Gastrointestinal: Gastrointestinal: Reports no additional gastrointestinal complaints Integumentary/Breasts: Skin/Breast: Reports system reviewed and no additional complaints, except as docu Neurologic: Reports weakness Endocrine: Endocrine: Reports no additional endocrine complaints Hematologic/Lymphatic: Hematologic/Lymphatic: Reports no additional hematologic/lymphatic complaints Allergic/Immunologic: Allergic/Immunologic: Reports no additional allergic/immunologic complaints Exam Const: General: comfortable and no acute distress Other: Overweight elderly lady pleasant cooperative supine in bed no distress HENMT: Mouth: Yes moist mucous membranes Eyes: Sclera: sclerae normal Neck: Neck: supple and no JVD Resp: Effort & Inspection: normal respiratory effort and tachypneic Auscultation: clear to auscultation bilaterally Cardio: Rate: tachycardic Rhythm: regular rhythm Heart sounds: no murmurs GI: Auscultation: normal bowel sounds Skin: General skin exam: normal color Neuro: Cognition (Neuro): normal cognition Extrem: General: normal to inspection Other: No edema adequate distal arterial perfusion Objective Data Vital Signs Vital Signs: Vital Signs - 24 hr 03/20/22 12:00 03/20/22 12:59 03/20/22 14:00 Temperature 36.6 C Pulse Rate 108 H 109 H 108 H Respiratory Rate 18 Blood Pressure 125/59 L Pulse Oximetry 95 03/20/22 14:34 03/20/22 14:47 03/20/22 16:00 Temperature Pulse Rate 112 H Respiratory Rate Blood Pressure Pulse Oximetry 95 98 03/20/22 17:53 03/20/22 20:00 03/20/22 21:03 Temperature Pulse Rate 116 H 120 H Respiratory Rate Blood Pressure 135/63 131/69 Pulse Oximetry 92 93 03/20/22 22:00 03/21/22 00:00 03/21/22 04:00 Temperature 37.8 C H Pulse Rate 118 H 123 H 123 H Respiratory Rate 22 H Blood Pressure 150/63 H Pulse Oximetry 93 03/21/22 04:32 03/21/22 06:00 03/21/22 07:35 Temperature 36.8 C 37.7 C H Pulse Rate 124 H 128 H Respiratory Rate 30 H 20 Blood Pressure 143/65 H 131/63 Pulse Oximetry 94 97 94 03/21/22 07:55 03/21/22 08:36 Temperature Pulse Rate 125 H Respiratory Rate Blood Pressure
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
--- NOTE | 2022-03-21 14:36 | PCOTNOTE ---
Attempted to see pt. RN stated pt. might be going on comfort care, held tx today per OTR.
--- NOTE | 2022-03-21 16:57 | PM.DS ---
DS: Admitting Diagnosis Discharge Date 03/21/22 Admitting Diagnosis weakness DS: Discharge Diagnosis Discharge Diagnosis (1) Metastatic malignant melanoma: Code(s): C43.9 - Malignant melanoma of skin, unspecified Status: Acute Assessment and Plan: -Metastatic disease to the liver and lungs status post 4 week, 2 drug regimen in November 2021, as per medical history noted in HPI. -CT of the abdomen and pelvis on 02/28/2022 showed improved lung and liver mets though noted a worsened 18 mm cystic lesion of the pancreas -Seejannet Irving -Restarted Chemo 12/09/21 -Unsure of last treatment at this time -Pt continues to decline despite medical interventions. Had a long discussion with regarding prognosis. Pt would like a hospice consult. I have also asked the heel boom operator to speak with him, as well as left a VM for Dr. Irving. After meeting with VANESSA, patient's /POA has decided to proceed with inpatient hospice at this time. (2) Pulmonary embolism: Code(s): I26.99 - Other pulmonary embolism without acute cor pulmonale Status: Acute Assessment and Plan: -high risk of PE with hx of metastatic melanoma and DVT, was previously on full strength aspirin daily -presented tachycardic and only 90% oxygen on RA -d dimer was ordered which was markedly elevated -stat CTA showed bilateral PE -heparin drip was initiated per protocol, transitioned to Xarelto however patient stopped swallowing pills over the past 1-2 days so I have switched her to Lovenox pending hospice consult (3) Afib: Code(s): I48.91 - Unspecified atrial fibrillation Status: Acute Assessment and Plan: -EKG confirms Afib RVR with a rate in the 130 -Metoprolol adjusted to BID 50mg PO -Converted back to Sinus Tach -Was being coagulated with xaralto but now not swallowing pills, this was switched to Lovenox pending hospice consult -echo pending -cardiology consulted (4) UTI (urinary tract infection): Code(s): N39.0 - Urinary tract infection, site not specified Status: Acute Assessment and Plan: -UA suspicious for UTI, especially in the setting of weakness -blood cultures No growth to date -Urine culture w/ E. Coli sensitive to rocephin and augmentin -Rocephin changed to PO Augmentin in preparation for discharge, however as above she has stopped taking pills and therefore was switched back to rocephin (5) Generalized weakness: Code(s): R53.1 - Weakness Status: Acute Assessment and Plan: -She has become progressively more weak over the past 1-2 weeks -Likely due to above in addition to her metastatic cancer -No focal findings noted on exam and her brain CT showed no acute findings. -MRI brain w/ old CVA, no acute findings -fall precautions. -PT/OT consulted. (6) Transaminitis: Code(s): R74.01 - Elevation of levels of liver transaminase levels Status: Acute Assessment and Plan: -May be related to metastatic malignant melanoma to the liver though this is higher than what she typically runs. -Current AST/ALT 52/35 -Abdominal exam is benign -Hepatitis panel negative -RUQ US with diffuse hepatic steatosis and gallbladder distension likely due to fasting. No gallstones or gallbladder wall thickening to suggest cholecystitis. -Improving (7) CKD (chronic kidney disease) stage 3, GFR 30-59 ml/min: Qualifiers: Chronic kidney disease stage 3 subtype: stage 3a (GFR 45-59) Qualified Code(s): N18.31 - Chronic kidney disease, stage 3a Code(s): N18.3 - Chronic kidney disease, stage 3 (moderate) Status: Acute Assessment and Plan: -Current Cr 1.20 -Baseline looks to be 0.90-1.20 (8) Hypertension: Code(s): I10 - Essential (primary) hypertension Status: Acute Assessment and Plan: -Current BP is 143/65 -Blood pressures were reviewed and they are stable.
== END 2022-03-21 17:00 | disposition hospice, inpatient (51) | DRG 689 ==
LOC: ANHED 15:59 → ANH3MEDSUR 16:15
PROVIDERS: Internal Medicine; Nurse Practitioner; Physician Assistant; Admitting Provider Internal Medicine; Emergency Provider Family Medicine; PCP Family Medicine; Visit Provider Family Medicine
DX: N39.0 Urinary tract infection, site not specified (principal); I26.99 Other pulmonary embolism without acute cor pulmonale; C78.7 Secondary malignant neoplasm of liver and intrahepatic bile duct; C78.00 Secondary malignant neoplasm of unspecified lung; K86.2 Cyst of pancreas; D68.69 Other thrombophilia; B96.20 Unspecified Escherichia coli [E. coli] as the cause of diseases classified elsewhere; C43.9 Malignant melanoma of skin, unspecified; E86.0 Dehydration; I48.91 Unspecified atrial fibrillation; E66.9 Obesity, unspecified; R09.02 Hypoxemia; E83.42 Hypomagnesemia; I12.9 Hypertensive chronic kidney disease with stage 1 through stage 4 chronic kidney disease, or unspecified chronic kidney disease; N18.31 Chronic kidney disease, stage 3a; E11.22 Type 2 diabetes mellitus with diabetic chronic kidney disease; Z66 Do not resuscitate; Z51.5 Encounter for palliative care; Z86.73 Personal history of transient ischemic attack (TIA), and cerebral infarction without residual deficits; Z68.32 Body mass index [BMI] 32.0-32.9, adult; Z86.718 Personal history of other venous thrombosis and embolism; Z79.82 Long term (current) use of aspirin; G47.33 Obstructive sleep apnea (adult) (pediatric)
CPT/HCPCS: 36415; 70450; 70551; 71045; 71275; 76705; 80048; 80053; 80074; 80076; 81001; 82550; 83690; 83735; 83880; 84439; 84443; 84480; 85025; 85380; 85610; 85730; 86140; 87040; 87077; 87086; 87088; 87186; 93005; 94762; 96360; 96361; 96365; 97110; 97161; 97165; 97530; 97535; 99285; A9270; G0378; J0696; J1644; J1940; J3475; J7030; J7040; Q9967

== ENCOUNTER 2022-03-21 17:20 | HOS | payer OTHER, MEDICARE, SELFPAY ==
[2022-03-21] MEDS: HYDROmorphone HCL/PF (*CRX) 50 MG in SODIUM CHLORIDE 0.9% IV 95 ML IV CONT (18:45)
[2022-03-21 19:06] VITALS: BMI 32.3
[2022-03-21 21:30] VITALS: O2SAT 96
[2022-03-22] VITALS (8 sets, daily range): BP systolic 87–113; BP diastolic 49–56; PULSE 138–142; RESP 10–14; TEMP 38–38.8; O2SAT 88–95
[2022-03-22] MEDS: ARTIFICIAL TEARS OPHTH SOLN 15 ML BOTTLE EACH EYE (15:38)
[2022-03-22] MEDS: GLYCOPYRROLATE INJ (*SP) 0.2 MG/ML VIAL 0.1 MG IV PUSH ×2 (15:39→20:31)
[2022-03-22] MEDS: LORazepam INJ (*CRX) 2 MG/ML VIAL 1 MG IV PUSH (15:39)
--- NOTE | 2022-03-22 16:47 | PM.IMHP ---
H&P: HPI History of Present Illness Date/Time: 03/22/22 16:47 Chief Complaint: Uncontrolled dyspnea Narrative: This unfortunate 81-year-old female the history of malignant melanoma of the right lower extremity metastatic to lungs and liver was undergoing outpatient chemotherapy. Further 2 weeks prior to admission on March 16 she became increasingly weak. The 2 days prior to admission she was unable to get out of bed on her own. She presented the emergency department where she was found to have urinary tract infection with pansensitive E coli as well as extensive metastatic disease to the lungs and liver. She developed pulmonary emboli and was anticoagulated with heparin. She was treated with IV ceftriaxone for the UTI. With Pulmonary and follow I's she developed self-limited atrial fibrillation. In spite of appropriate treatment she became weaker and was unable to eat and drink. She was unable to communicate her needs and bedbound incontinent of bowel and bladder. PPS was 10. She was struggling with shortness of breath with respirations in the mid 20s and grunting respirations. Her family opted for comfort care only on the inpatient hospice service. 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 Chronic gout CKD (chronic kidney disease) stage 3, GFR 30-59 ml/min Deep venous thrombosis Depression History of basal cell carcinoma Hypertension Malignant melanoma of right lateral thigh Metastatic malignant melanoma Patient of Dr. Gio Irving. Status post resection x2, right thigh. Keytruda 06/2021 through 11/2021. Ipilimumab and nivolumab x4 weeks 11/2021 for progression of disease. Obesity Tinnitus Transient ischemic attack Tremor of both hands Type 2 diabetes mellitus without complication, without long-term current use of insulin Vitamin D deficiency Surgical History Surgical History History of melanoma excision Right thigh - 10/14 and 05/17 Family History Family History Sibling Acute myocardial infarction Mother Family history of cardiovascular disease Father Coronary artery disease Social History Social History (Updated 03/22/22 @ 16:59 by Wilfred Wade MD) Social History: Surrogate decision maker: Danyel Chew, . Code status: DNR Smoking status: Never smoker Second hand tobacco smoke exposure: No Alcohol intake: never Substance use: never Living arrangements: with family Additional living arrangements comments: Patient lives with her in [place]. Spiritual care concerns: No Meds Home Medications and Allergies Home Medications Medication Instructions Recorded Confirmed Type calcium carbonate-vitamin D3 1 cap PO DAILY 09/16/19 03/16/22 History aspirin 325 mg tablet 325 mg PO DAILY 06/07/21 03/16/22 History metoprolol succinate 100 mg 100 mg PO QAM #90 tablet 12/08/21 03/16/22 Rx tablet,extended release 24 hr amlodipine 5 mg tablet 5 mg PO DAILY #90 tablet 02/28/22 03/16/22 Rx rivaroxaban [Xarelto] 15 mg PO DAILY #40 tablet 03/19/22 Rx rivaroxaban [Xarelto] 20 mg PO DAILY #30 tablet 03/19/22 Rx Allergies Allergy/AdvReac Type Severity Reaction Status Date / Time No Known Allergies Allergy Verified 03/16/22 18:44 Vital Signs Vital Signs - 24 hr 03/21/22 21:30 03/22/22 08:00 03/22/22 14:30 Temperature Pulse Rate 138 H Respiratory Rate 14 Blood Pressure Pulse Oximetry 96 95 88 L 03/22/22 14:50 03/22/22 15:07 Temperature 101.9 F H Pulse Rate 138 H 138 H Respiratory Rate 14 Blood Pressure 113/56 L Pulse Oximetry 88 L
[2022-03-22] MEDS: HYDROmorphone HCL INJ (*CRX) 1 MG/ML SYR 0.5 MG IV PUSH (18:41)
[2022-03-23] MEDS: GLYCOPYRROLATE INJ (*SP) 0.2 MG/ML VIAL 0.1 MG IV PUSH ×4 (01:07→15:59)
[2022-03-23] MEDS: LORazepam INJ (*CRX) 2 MG/ML VIAL 1 MG IV PUSH ×2 (01:29→06:23)
[2022-03-23 06:28] VITALS: PULSE 145; O2SAT 91
[2022-03-23 08:00] VITALS: PULSE 140; RESP 10; O2SAT 92
[2022-03-23 14:00] VITALS: BP 81/43; PULSE 148; RESP 12; TEMP 38; O2SAT 80
--- NOTE | 2022-03-23 16:12 | PC.NURSE ---
Sarah provided RN with the home location. [facility] in [place], [place]. Used to be called [facility] contact# [phone].
--- NOTE | 2022-03-23 17:27 | PM.IMPN ---
Progress Note: A&P Assessment and Plan (1) Palliative care by specialist: Code(s): Z51.5 - Encounter for palliative care Status: Acute Assessment and Plan: Meets criteria for inpatient hospice due to requiring continues IV hydromorphone for control of dyspnea Continue current palliative regimen Discussed at bedside with son, Wilfred, and granddaughter (2) Hypoxia: Code(s): R09.02 - Hypoxemia Status: Acute (3) Afib: Qualifiers: Atrial fibrillation type: paroxysmal Qualified Code(s): I48.0 - Paroxysmal atrial fibrillation Code(s): I48.91 - Unspecified atrial fibrillation Status: Acute (4) UTI (urinary tract infection): Qualifiers: Hematuria presence: without hematuria Urinary tract infection type: site unspecified Qualified Code(s): N39.0 - Urinary tract infection, site not specified Code(s): N39.0 - Urinary tract infection, site not specified Status: Acute (5) Pulmonary embolism: Qualifiers: Acute cor pulmonale presence: without acute cor pulmonale Chronicity: acute Pulmonary embolism type: other Qualified Code(s): I26.99 - Other pulmonary embolism without acute cor pulmonale Code(s): I26.99 - Other pulmonary embolism without acute cor pulmonale Status: Acute (6) Metastatic malignant melanoma: Code(s): C43.9 - Malignant melanoma of skin, unspecified Status: Acute Subjective Date/time seen: 03/23/22 17:27 Interval history: 03/23: remains comfortable since drip increase 03/22. Review of Systems Review of Systems: ROS unobtainable: Yes unobtainable due to medical condition Exam Narrative: No JVD Lungs: Coarse BS Heart RR Objective Data Vital Signs Vital Signs: Vital Signs - 24 hr 03/22/22 18:46 03/22/22 18:58 03/22/22 20:30 Temperature Pulse Rate 138 H 138 H 140 H Respiratory Rate 12 11 L Blood Pressure Pulse Oximetry 90 89 L 03/22/22 23:24 03/23/22 06:28 03/23/22 08:00 Temperature 100.4 F H Pulse Rate 142 H 145 H 140 H Respiratory Rate 10 L 10 L Blood Pressure 87/49 L Pulse Oximetry 90 91 92 03/23/22 14:00 Temperature 100.4 F H Pulse Rate 148 H Respiratory Rate 12 Blood Pressure 81/43 L Pulse Oximetry 80 L Meds/Results Medications: Active Medications Generic Name Dose Route Start Last Admin Trade Name Freq PRN Reason Stop Dose Admin Artificial Tears 0 drop 03/21/22 18:20 03/22/22 15:38 Artificial Tears Ophth Soln 15 Ml Bottle EACH EYE 1 drop Q12H PRN Administration Dry Eye(s) Bisacodyl 10 mg 03/21/22 18:20 Bisacodyl 10 Mg Suppository RECTAL DAILY PRN Constipation Glycopyrrolate 0.1 mg 03/21/22 18:20 03/23/22 15:59 Glycopyrrolate Inj (*Sp) 0.2 Mg/Ml Vial IV PUSH 0.1 mg Q4H PRN Administration secretions Hydromorphone HCl 1 mg 03/22/22 18:43 Hydromorphone Hcl Inj (*Crx) 1 Mg/Ml Syr IV PUSH Q2H PRN SOB/PAIN Hydromorphone HCl 50 mg/ 100 mls @ 1 mls/hr 03/21/22 18:20 03/22/22 18:46 Sodium Chloride IV CONT 0.5 mg/hr .Q24H LORAINE 1 mls/hr Infusion 0.5 MG/HR Lorazepam 1 mg 03/21/22 18:20 03/23/22 06:23 Lorazepam Inj (*Crx) 2 Mg/Ml Vial IV PUSH 1 mg Q4H PRN Administration RESTLESSNESS Prochlorperazine Edisylate 10 mg 03/21/22 18:20 Prochlorperazine Edisylate 10 Mg/2 Ml Vial IV PUSH Q6H PRN Nausea And Vomiting
[2022-03-24 00:33] VITALS: BP 67/32; PULSE 136; RESP 12; TEMP 37; O2SAT 97
--- NOTE | 2022-03-24 06:01 | PC.NURSE ---
0435 Pt has no pulse, no respirations. Pt is a DNR. supervisor anodizing pronounce at 0435. Family remains at bedside.
--- NOTE | 2022-03-24 15:50 | P.DN_ITS ---
Discharge Summary Date and Time Date of : 03/24/22 Time of : 04:35 Provider Pronounced By: Katherine Frye RNpump and blower operator Probable Cause of Probable Cause of : stage 4 melanoma Summary Hospital Course: Admitted to inpatient hospice service due to dyspnea and discomfort. Medication titrated to comfort. Patient peacefully. Additional Data Confirmation of as documented by pronouncing clinician: Heart Tones and Breath Sounds Name of Provider Notified: Wilfred Wade Time Provider Notified: 05:26 Provider Requests Autopsy: No Family Requests Autopsy: No Customer Resolution Specialist Notified: Yes Date [facility] Notified of : 03/24/22 Time [facility] Notified of : 05:10
--- NOTE | 2022-04-05 10:22 | PC.NURSE ---
Patient has . Bottle of Aspirin, Amlodipine, and Metoprolol will be discarded.
== END 2022-03-24 04:35 | disposition expired | DRG 951 ==
PROVIDERS: Admitting Provider Internal Medicine; PCP Family Medicine; Visit Provider Internal Medicine
DX: Z51.5 Encounter for palliative care (principal); I26.99 Other pulmonary embolism without acute cor pulmonale; N39.0 Urinary tract infection, site not specified; C79.9 Secondary malignant neoplasm of unspecified site; R09.02 Hypoxemia; C43.9 Malignant melanoma of skin, unspecified; I48.0 Paroxysmal atrial fibrillation; Z79.899 Other long term (current) drug therapy; Z86.73 Personal history of transient ischemic attack (TIA), and cerebral infarction without residual deficits; N18.30 Chronic kidney disease, stage 3 unspecified; E11.22 Type 2 diabetes mellitus with diabetic chronic kidney disease; Z86.718 Personal history of other venous thrombosis and embolism; I12.9 Hypertensive chronic kidney disease with stage 1 through stage 4 chronic kidney disease, or unspecified chronic kidney disease; Z79.01 Long term (current) use of anticoagulants
CPT/HCPCS: A9270; J1170; J2060